=== PATIENT | female | born 1940 | race Caucasian/White ===

== ENCOUNTER 2020-10-07 07:20 | Outpatient (REF) | payer MEDICARE, BC, SELFPAY ==
[2020-10-07 11:18] LABS: MANUAL DIFF FLAG NO
[2020-10-07 11:20] LABS: Glucose Urine UA NEG (NEG); Leukocyte Esterase Urine TRACE (NEG); Nitrite Urine NEG (NEG); PH 6.5 (5.0-8.0); Urine Blood NEG (NEG); Urine Ketones NEG (NEG); Urine Protein NEG (NEG-TRACE)
[2020-10-07 11:22] LABS: Appearance Urine HAZY; Color Urine YELLOW
[2020-10-07 11:26] LABS: Basophils Absolute Auto 0.1 X10*3/uL (0.0-0.2); Basophils Percent Auto 0.6 % (0-2); Eosinophils Absolute Auto 0.2 X10*3/uL (0.0-0.4); Eosinophils Percent Auto 2.4 % (0-4); Imm Gran Abs Auto 0.04 X10*3/uL (0.00-0.03); Imm Gran Pct Auto 0.5 % (0.0-0.4); Lymphocytes Absolute Auto 1.9 X10*3/uL (1.2-4.9); Lymphocytes Percent Auto 21.7 % (20-40); Mean Corpuscular HGB Conc 34.2 g/dl (31.0-35.0); Mean Corpuscular Hemoglobin 32.7 pg (27.0-33.0); Mean Corpuscular Volume 95.7 fL (80-98); Mean Platelet Volume 10.3 fL (9.4-12.3); Monocytes Percent Auto 11.4 % (2-11); Neutrophils Absolute Auto 5.5 X10*3/uL (2.0-8.3); Neutrophils Percent Auto 63.4 % (45-73); Platelet Count 332 X10*3/uL (160-400); Red Blood Count 3.97 X10*6/uL (4.20-5.50); Red Cell Distribution Width 13.8 % (11.0-16.0); White Blood Count 8.6 X10*3/uL (4.8-10.8)
[2020-10-07 11:31] LABS: RBC Urine 0 /HPF (0); Renal Epithelial Cells Urine TRACE /LPF; Squamous Epithelial Cell Urine 1+ /LPF
[2020-10-07 12:05] LABS: Vitamin D 25-OH Total 19.5 ng/mL (>30)
[2020-10-07 12:06] LABS: Alanine Aminotransferase 28 U/L (0-31); Albumin Level 4.6 g/dL (3.5-5.0); Alkaline Phosphatase 46 U/L (39-117); Anion Gap 18 (12-20); Aspartate Amino Transferase 32 U/L (5-31); Bilirubin Total 0.7 mg/dL (0.0-1.0); Blood Urea Nitrogen 11 mg/dL (9-16); C Reactive Protein 0.18 mg/dL (< or = 0.50); Calcium 9.7 mg/dL (8.4-10.2); Carbon Dioxide 25 mmol/L (22-29); Chloride 98 mmol/L (96-108); Cholesterol 289 mg/dL; Estimated Glomerular Filt Rate > 60; Glucose Fasting 116 mg/dL (60-99); HDL Cholesterol 101 mg/dL; LDL Cholesterol Calculated 172 mg/dl; Potassium 4.3 mmol/L (3.3-5.1); Sodium 137 mmol/L (135-145); Total Protein 7.4 g/dL (6.5-8.0); Triglycerides 83 mg/dL
[2020-10-07 12:11] LABS: Erythrocyte Sedimentation Rate 7 MM/HR (0-20)
[2020-10-07 12:15] LABS: Vitamin B12 < 146 pg/mL (200-900)
[2020-10-11 15:32] LABS: Methylmalonic Acid 589 nmol/L (87-318)
[2020-10-12 12:52] LABS: Anti Nuclear Antibody Screen NEGATIVE (NEGATIVE)
== END 2020-10-07 07:21 | disposition home or self-care (01) ==
LOC: HO.HMGCLDS 07:20
PROVIDERS: PCP Internal Medicine; Visit Provider Internal Medicine
DX: Z00.01 Encounter for general adult medical examination with abnormal findings (principal); I10 Essential (primary) hypertension; E55.9 Vitamin D deficiency, unspecified; E78.00 Pure hypercholesterolemia, unspecified
CPT/HCPCS: 36415; 80053; 80061; 81001; 82306; 82607; 83921; 84443; 85025; 85652; 86038; 86039; 86140

== ENCOUNTER 2021-01-20 12:35 | Outpatient (REF) | payer MEDICARE, BC, SELFPAY ==
[2021-01-20 14:55] LABS: Vitamin B12 342 pg/mL (200-900)
== END 2021-01-20 12:36 | disposition home or self-care (01) ==
LOC: HO.HMGCLDS 12:35
PROVIDERS: PCP Internal Medicine; Visit Provider Internal Medicine
DX: Z00.00 Encounter for general adult medical examination without abnormal findings (principal); E53.8 Deficiency of other specified B group vitamins
CPT/HCPCS: 36415; 82607

== ENCOUNTER 2021-03-25 | Outpatient (REF) | payer MEDICARE, BC, SELFPAY ==
[2021-03-25 14:27] LABS: CDiff Gene PCR NEGATIVE (Negative)
[2021-03-25 14:44] LABS: Leukocytes Stool Qualitative NEGATIVE (NEGATIVE)
== END 2021-03-25 00:01 | disposition home or self-care (01) ==
LOC: HO.HMGCLNP
PROVIDERS: Visit Provider Internal Medicine
DX: R19.7 Diarrhea, unspecified (principal)
CPT/HCPCS: 87045; 87046; 87177; 87209; 87493; 89055

== ENCOUNTER 2022-03-21 07:23 | Outpatient (REF) | payer MEDICARE, BC, SELFPAY ==
[2022-03-21 11:59] LABS: Hematocrit 38.6 % (37.0-47.0); Hemoglobin 13.3 g/dl (12.0-16.0); Mean Corpuscular HGB Conc 34.5 g/dl (31.0-35.0); Mean Corpuscular Hemoglobin 32.6 pg (27.0-33.0); Mean Corpuscular Volume 94.6 fL (80.0-98.0); Mean Platelet Volume 10.3 fL (9.4-12.3); Platelet Count 331 X10*3/uL (160-400); Red Blood Count 4.08 X10*6/uL (4.20-5.50); White Blood Count 6.6 X10*3/uL (4.8-10.8)
[2022-03-21 12:22] LABS: Alanine Aminotransferase 25 U/L (0-31); Albumin Level 4.8 g/dL (3.5-5.0); Alkaline Phosphatase 45 U/L (39-117); Anion Gap 19 (12-20); Aspartate Amino Transferase 38 U/L (5-31); Bilirubin Total 0.6 mg/dL (0.0-1.0); Blood Urea Nitrogen 12 mg/dL (9-16); Carbon Dioxide 26 mmol/L (22-29); Chloride 93 mmol/L (96-108); Cholesterol 298 mg/dL; Estimated Glomerular Filt Rate > 60; Glucose Fasting 107 mg/dL (60-99); HDL Cholesterol 127 mg/dL; LDL Cholesterol Calculated 158 mg/dl; Potassium 5.2 mmol/L (3.3-5.1); Sodium 133 mmol/L (135-145); Total Protein 7.8 g/dL (6.5-8.0); Triglycerides 66 mg/dL
[2022-03-21 12:30] LABS: TSH reflex Free T4 2.38 uIU/mL (0.32-4.0)
[2022-03-21 12:41] LABS: Creatinine Urine 119.59 mg/dL; Microalbum/Creatinine Ratio Ur 37.6 ug/mg cr
[2022-03-21 14:49] LABS: Vitamin B12 227 pg/mL (200-900)
== END 2022-03-21 07:24 | disposition home or self-care (01) ==
LOC: HO.HMGCLDS 07:23
PROVIDERS: PCP Internal Medicine; Visit Provider Internal Medicine
DX: Z00.00 Encounter for general adult medical examination without abnormal findings (principal); R53.83 Other fatigue; I10 Essential (primary) hypertension
CPT/HCPCS: 36415; 80053; 80061; 82043; 82607; 84443; 85027

== ENCOUNTER 2022-10-16 08:46 | Outpatient (REF) | payer MEDICARE, BC, SELFPAY ==
--- NOTE | ~2022-10-16 | US_ITS ---
EXAMINATION: US ABDOMEN COMPLETE CLINICAL INFORMATION: Elevated LFTs, nausea. COMPARISON: None available. TECHNIQUE: Real-time imaging of the abdominal viscera. FINDINGS: PANCREAS: Normal. ABDOMINAL AORTA: Atherosclerotic changes are present aorta but there is no aneurysm. INFERIOR VENA CAVA: Visualized portions are normal. LIVER: The liver is normal in size. The liver contour is normal. Liver echogenicity is borderline increased suggesting hepatic steatosis. No focal hepatic lesion. There is no intrahepatic biliary duct dilatation seen. GALLBLADDER: The gallbladder is not visualized although the patient states that there has been no cholecystectomy. COMMON BILE DUCT: Normal in caliber measuring 0.6 cm in diameter. RIGHT KIDNEY: There is some punctate foci in the renal sinus which may be vascular interfaces. No hydronephrosis. No convincing renal calculi or focal parenchymal lesions. The kidney measures 9.8 cm in maximum dimension. LEFT KIDNEY: There is some punctate foci in the renal sinus which may be vascular interfaces. No hydronephrosis. No renal calculi or focal parenchymal lesions. The kidney measures 9.6 cm in maximum dimension. SPLEEN: The spleen is small measuring 6.3 cm in maximum dimension. FREE FLUID: None. US/US abdomen complete IMPRESSION: Borderline increased echogenicity of the liver suggesting hepatic steatosis.
== END 2022-10-16 08:47 | disposition home or self-care (01) ==
LOC: HO.US 08:46
PROVIDERS: PCP Family Medicine; Visit Provider Internal Medicine
DX: R74.8 Abnormal levels of other serum enzymes (principal); R11.0 Nausea
CPT/HCPCS: 76700

== ENCOUNTER 2023-02-26 15:20 | Inpatient (IN) | payer MEDICARE, BC, SELFPAY ==
--- NOTE | ~2023-02-26 | XR_ITS ---
EXAMINATION: XR CHEST CLINICAL INFORMATION: Concern for aspiration. COMPARISON: Previous of the same day. TECHNIQUE: Frontal view of the chest was obtained. FINDINGS: The patient is rotated and the lung volumes are low. The cardiomediastinal silhouette is within normal limits. There are faint lung base opacities more prominent on the left. The upper lung jimenes are clear. There is blunting of the costophrenic angles. The bony structures are osteopenic. The soft tissues are unremarkable. XR/XR chest 1V IMPRESSION: Rotation and low lung volumes limits evaluation. Faint lower lung field opacities possibly atelectasis or infiltrates. Aspiration is considered. Small bilateral pleural effusions.
--- NOTE | ~2023-02-26 | CT_ITS ---
EXAMINATION: CT HEAD WITHOUT CONTRAST CLINICAL INFORMATION: Confusion COMPARISON: None TECHNIQUE: Contiguous axial imaging was performed from the skull base to vertex without intravenous administration of contrast. This CT examination was performed using dose optimization techniques as appropriate, variously including the following: *Automated exposure control *Adjustment of mA and/or kV according to patient size (this includes techniques or standardized protocols for targeted exams where dose is matched to indication/reason for exam; i.e. extremities or head) *Use of iterative reconstruction technique DLP: 654 mGy-cm FINDINGS: There is no evidence of acute intracranial hemorrhage or territorial infarction. Chronic white matter small vessel ischemic changes. Cerebral atrophy with commensurate ventricular changes. No abnormal mass effect or midline shift is seen. [place] to white matter differentiation is well preserved. No extra-axial fluid collections are identified. The ventricles are normal in size. There is no abnormal attenuation within the brain parenchyma. The osseous structures and soft tissues are normal. The mastoid air cells and visualized portions of the paranasal sinuses are well aerated. CT/CT head/brain wo IV con IMPRESSION: 1. No acute intracranial pathology. 2. Chronic white matter small vessel ischemic changes.
--- NOTE | ~2023-02-26 | XR_ITS ---
EXAMINATION: XR CHEST CLINICAL INFORMATION: Shortness of breath COMPARISON: Chest 02/28/2023 TECHNIQUE: AP upright portable view of the chest was obtained. 9:58 AM FINDINGS: Heart size is upper limits of normal. Interval decrease in right pleural effusion. No evidence of a left pleural effusion. Slight streaky opacity at lung bases is consistent with atelectasis and/or pneumonia. No CHF. XR/XR chest 1V IMPRESSION: 1. Interval decrease in right pleural effusion. No left pleural effusion. 2. Bibasilar atelectasis and/or pneumonia.
--- NOTE | ~2023-02-26 | XR_ITS ---
EXAMINATION: XR CHEST CLINICAL INFORMATION: Shortness of breath COMPARISON: None available. TECHNIQUE: Frontal view of the chest was obtained. FINDINGS: Heart size upper limits normal. Probable tiny bilateral pleural effusions. There is no evidence of CHF. No infiltrates or lung masses are seen. XR/XR chest 1V IMPRESSION: Probable tiny bilateral pleural effusions.
[2023-02-26 15:36] VITALS: BP 143/104; PULSE 120; RESP 16; TEMP 36.6; O2SAT 96; BMI 25.7
--- NOTE | 2023-02-26 15:37 | ED.GENADULT ---
HPI - General Adult General Chief complaint: Nausea/Vomiting/Diarrhea Stated complaint: abnormal labs Time Seen by Provider: 02/26/23 19:30 Source: patient Mode of arrival: ambulatory Limitations: no limitations History of Present Illness HPI narrative: 83-year-old female history of high blood pressure brought to the ED by her daughter and for abnormal lab results. Patient was informed by primary care provider blood test that was done by her renal doctor showed hyponatremia and recommend patient to follow up with the ED. patient's sodium was 125. Patient admits for the past couple weeks she has been tired/lethargic and has had a decrease in appettite. Patient denies any weight loss, fever, chills, abdominal pain, headache, dizziness, slurred speech, facial droop, seizures, or paralysis of extremities. Related Data Home Medications Medication Instructions Recorded Confirmed esomeprazole magnesium 20 mg 20 mg PO DAILY 02/26/23 02/26/23 tablet,delayed release metoprolol succinate 100 mg 100 mg PO DAILY 02/26/23 02/26/23 tablet,extended release 24 hr metoprolol succinate 25 mg 25 mg PO DAILY 02/26/23 02/26/23 tablet,extended release 24 hr ondansetron HCl 4 mg tablet 4 mg PO Q8H PRN Nausea 02/26/23 02/26/23 timolol maleate 0.5 % eye drops 1 drp ophthalmic (eye) QAM 02/26/23 02/26/23 Allergies Allergy/AdvReac Type Severity Reaction Status Date / Time acetaminophen [Percocet] Allergy Unknown Verified 08/13/18 00:00 oxycodone [Percocet] Allergy Unknown Verified 08/13/18 00:00 Review of Systems Review of Systems: Abnormal lab results. Lethargy Yes all other systems are reviewed and are negative [facility] Past Medical History Medical History Osteoarthritis Gastroesophageal reflux disease Essential hypertension Social History Social History Alcohol intake: current Alcohol intake frequency: 0-2 drinks per day Alcohol type: wine Patient Tobacco Use Status: Never used Tobacco Smoked in Last 30 Days: No Use of substances other than those prescribed or required for medical reasons: No Advance Directives: No Advance Directives Information Provided: No Nutrition Risks: No Nutritional Risk service: No Physical Exam ED Vital Signs: Vital Signs - 24 hr 02/26/23 15:36 Temperature 98 F Pulse Rate 120 H Respiratory Rate 16 Blood Pressure 143/104 H Pulse Oximetry 96 Oxygen Delivery Method Room Air BMI result Body Mass Index 25.7 Const General: cooperative, healthy appearing, comfortable, no acute distress, well developed, alert and awake Orientation/consciousness: oriented to person, oriented to place, oriented to time and patient oriented x3 HENCO Head: Yes normal to inspection, Yes No palpable skull fracture present, Yes normocephalic and Yes atraumatic Eyes General: appearance normal, both eyes and all related structures Neck Neck: Yes normal visual inspection, Yes full ROM, Yes no lymphadenopathy, Yes no meningeal signs, Yes trachea midline, Yes supple, No anterior neck swelling and No tender Chest Chest palpation & inspection: normal inspection of the chest and normal palpation of entire chest wall Resp Effort & Inspection: normal respiratory effort and able to speak in complete sentences Auscultation: clear to auscultation bilaterally Cardio Jugular venous distension: no JVD Heart sounds: S1 normal heart sound present and S2 normal heart sound present GI Inspection: Yes normal to inspection and No abdominal wall ecchymosis Palpation (GI): Soft to palpation, not firm, nontender, no guarding and not rigid General: No CVA tenderness and Yes no CVA tenderness Back/Spine/Pelvis Back: no CVA tenderness, No CVA tenderness and No back tenderness Skin General skin exam: no rashes or lesions noted, elasticity normal and turgor normal Neuro Other: Negative for any facial droop, paralysis of extremities, slurred speech, loss of vision, of paralysis of extremities. Negative pronator drift. [id number] and rapid hand movement intact. Patient alert oriented x3 General: oriented to person, oriented to place, oriented to time, patient oriented x3, gait normal, tone normal, moves all extremities, Normal light touch and pain sensation, no meningeal signs, no focal motor deficits, CN's II-XI intact bilaterally and normal sensation to monofilament Extrem General: Yes normal to inspection and Yes full ROM Psych Appearance: grossly normal, well kempt and not disheveled Course Course Course Narrative: RME- 83-year-old female presents for evaluation off ?abnormal labs. ? She had labs done 2 weeks ago at a [facility] facility which showed a sodium of 125. Per the patient's daughter she has had intermittent confusion and lethargy as well as chronic nausea. Patient appears to be in AFib with RVR, heart rate as high as 130 in triage. Plan for labs, EKG. Reevaluation(s) Reevaluation #1: [facility] renal panel Results. Medications Administered Generic Name Dose Route Start Last Admin Trade Name Freq PRN Reason Stop Dose Admin Enoxaparin Sodium 40 mg 02/26/23 21:00 02/26/23 20:58 Enoxaparin Sodium 40 Mg/0.4 Ml Syringe SUBCUT 40 mg Q24H SOHAIL Administration Melatonin 6 mg 02/26/23 20:31 02/26/23 21:08 Melatonin 3 Mg Tablet PO 6 mg BEDTIME PRN Administration Insomnia Ondansetron HCl 4 mg 02/26/23 20:31 02/27/23 06:44 Ondansetron Hcl 4 Mg/2 Ml Vial IVPUSH 4 mg Q8H PRN Administration Nausea and Vomiting Sodium Chloride 3 ml 02/27/23 00:00 02/27/23 07:05 0.9 % Sodium Chloride Flush 3 Ml Syringe IVFLUSH Not Given QSHIFT SOHAIL Discontinued Medications Generic Name Dose Route Start Last Admin Trade Name Freq PRN Reason Stop Dose Admin Diltiazem HCl 15 mg 02/26/23 20:26 02/26/23 20:58 Diltiazem Hcl 50 Mg/10 Ml Vial IVPUSH 02/26/23 20:27 15 mg STAT STA Administration Diltiazem HCl 15 mg 02/27/23 06:21 02/27/23 06:36 Diltiazem Hcl 50 Mg/10 Ml Vial IVPUSH 02/27/23 06:22 15 mg STAT STA Administration Zolpidem Tartrate 5 mg 02/26/23 23:43 02/26/23 23:56 Zolpidem Tartrate 5 Mg Tablet PO 02/26/23 23:44 5 mg ONCE ONE Administration Medical Decision Making Medical Decision Making [facility] Narrative: 83-year-old female history of high blood pressure brought to ED for hyponatremia found by lab work done on February 16 by Renal doctor which showed sodium of 125. Patient admits to being a start drinking decreased appetite and not eating much. Patient denies any abdominal pain, nausea, vomiting, fever, chills, chest pain, shortness of breath, slurred speech, facial droop, or paralysis of extremities. Patient denies any loss of vision. Patient also new onset AFib in the ER. Patient and family denies any history of atrial fibrillation. Patient denies any chest pain or shortness of breath. Patient is alert oriented x3. Patient follows commands. Patient knows her name address and place. Patient can identify and and Dominic the names. Patient presently is not altered. Negative for tremors. 11:00pm : Patient admitted for hyponatremia and Afib RVR. Case discussed with Dr. Tolbert [facility]. FLuids ordered and Patient given DIltizeim IV. Patient not in any distress. Differential Diagnosis Differential Diagnoses: The differential diagnosis associated with the presentation includes (Hyponatremia, Afib, UTI, Covid) Admission/Observation Consideration of admission/observation: Escalation of care including admission/observation considered Consult Healthcare Provider Management of the patient was discussed with: Hospitalist (Dr. Tolbert) Lab Data MDM Lab Attestation statement: I reviewed the patient's lab results. 02/27/23 05:22 02/27/23 05:22 Labs: Lab Results 02/26/23 02/26/23 Range/Units 15:56 19:57 WBC 7.5 (4.8-10.8) X10*3/uL RBC 3.71 L (4.20-5.50) X10*6/uL Hgb 12.1 (12.0-16.0) g/dl Hct 34.6 L (37.0-47.0) % MCV 93.3 (80.0-98.0) fL MCH 32.6 (27.0-33.0) pg MCHC 35.0 (31.0-35.0) g/dl RDW 12.6 (11.0-16.0) % Plt Count 340 (160-400) X10*3/uL MPV 9.2 L (9.4-12.3) fL Immature Gran % (Auto) 0.5 H (0.0-0.4) % Neut % (Auto) 72.1 (45-73) % Lymph % (Auto) 17.6 L (20-40) % [place] % (Auto) 8.5 (2-11) % Eos % (Auto) 0.9 (0-4) % Baso % (Auto) 0.4 (0-2) % Lymph # (Auto) 1.3 (1.2-4.9) X10*3/uL [place] # (Auto) 0.6 (0.1-1.2) X10*3/uL Eos # (Auto) 0.1 (0.0-0.4) X10*3/uL Baso # (Auto) 0.0 (0.0-0.2) X10*3/uL Abs Immat Gran (auto) 0.04 H (0.00-0.03) X10*3/uL Absolute Neuts (auto) 5.4 (2.0-8.3) x10*3/uL Absolute Nucleated RBC 0.000 (0.0-0.012) X10*3/uL Nucleated RBC % (auto) 0.0 (0.0-0.2) /100WBC PT 14.4 H (11.1-13.3) SEC INR 1.2 H (0.9-1.1) APTT 29.5 (26.0-36.4) SEC Sodium 124 L (135-145) mmol/L Potassium 5.1 (3.3-5.1) mmol/L Chloride 89 L (96-108) mmol/L Carbon Dioxide 24 (22-29) mmol/L Anion Gap 16 (12-20) BUN 13 (9-16) mg/dL Creatinine 1.03 (0.5-1.4) mg/dL Estim Creat Clear Calc 37.1 Estimated GFR 51 Random Glucose 124 H (60-115) mg/dL Osmolality 261 L (281-305) mosm/kg Calcium 9.3 D (8.4-10.2) mg/dL Phosphorus 4.1 (2.7-4.5) mg/dL Magnesium 1.6 (1.6-2.6) mg/dL Total Bilirubin 0.3 (0.0-1.0) mg/dL AST 42 H (5-31) U/L ALT 29 (0-31) U/L Alkaline Phosphatase 63 (39-117) U/L Troponin I High Sens 14.4 (<3.5-17.0) ng/L Total Protein 7.1 (6.5-8.0) g/dL Albumin 4.0 (3.5-5.0) g/dL Lipase 20 (8-78) U/L TSH 3.25 (0.32-4.0) uIU/mL Independent Interpretation I performed an independent interpretation of an: EKG (Afib with RVR Claude 104, QRS 78, QTC 402. Negative STEMi) Independent Historian Clinical information obtained from an independent historian. History obtained from or confirmed by: Spouse and Other (Daughter) External Record Review External record reviewed: Other ([facility]) Discharge Plan Discharge Clinical Impression: Atrial fibrillation with RVR, Hyponatremia Patient Disposition: Admitted As Inpatient
--- NOTE | 2023-02-26 15:44 | ECG_ITS ---
Test Reason : ams Blood Pressure : / mmHG Vent. Rate : 104 BPM Atrial Rate : 000 BPM P-R Int : 000 ms QRS Dur : 078 ms QT Int : 306 ms P-R-T Axes : 000 046 183 degrees QTc Int : 402 ms Atrial fibrillation with rapid ventricular response ST & T wave abnormality, consider inferolateral ischemia Abnormal ECG No previous ECGs available Referred By: Leighton Landis Electronically Signed By:JOSE G PERSAUD MD
[2023-02-26 16:07] LABS: MANUAL DIFF FLAG NO
[2023-02-26 16:10] LABS: Basophils Percent Auto 0.4 % (0-2); Eosinophils Absolute Auto 0.1 X10*3/uL (0.0-0.4); Eosinophils Percent Auto 0.9 % (0-4); Hematocrit 34.6 % (37.0-47.0); Hemoglobin 12.1 g/dl (12.0-16.0); Imm Gran Abs Auto 0.04 X10*3/uL (0.00-0.03); Imm Gran Pct Auto 0.5 % (0.0-0.4); Lymphocytes Absolute Auto 1.3 X10*3/uL (1.2-4.9); Lymphocytes Percent Auto 17.6 % (20-40); Mean Corpuscular Hemoglobin 32.6 pg (27.0-33.0); Mean Corpuscular Volume 93.3 fL (80.0-98.0); Mean Platelet Volume 9.2 fL (9.4-12.3); Monocytes Absolute Auto 0.6 X10*3/uL (0.1-1.2); Monocytes Percent Auto 8.5 % (2-11); Neutrophils Absolute Auto 5.4 x10*3/uL (2.0-8.3); Neutrophils Percent Auto 72.1 % (45-73); Platelet Count 340 X10*3/uL (160-400); Red Blood Count 3.71 X10*6/uL (4.20-5.50); Red Cell Distribution Width 12.6 % (11.0-16.0); White Blood Count 7.5 X10*3/uL (4.8-10.8)
[2023-02-26 16:21] LABS: INTERNATIONAL NORM RATIO 1.2 (0.9-1.1); Prothrombin Time 14.4 SEC (11.1-13.3)
[2023-02-26 16:24] LABS: Partial Thromboplastin Time 29.5 SEC (26.0-36.4)
[2023-02-26 16:32] LABS: Alanine Aminotransferase 29 U/L (0-31); Alkaline Phosphatase 63 U/L (39-117); Anion Gap 16 (12-20); Aspartate Amino Transferase 42 U/L (5-31); Bilirubin Total 0.3 mg/dL (0.0-1.0); Blood Urea Nitrogen 13 mg/dL (9-16); Calcium 9.3 mg/dL (8.4-10.2); Carbon Dioxide 24 mmol/L (22-29); Chloride 89 mmol/L (96-108); Creatinine Clr Calc Pharmacy 37.1; Estimated Glomerular Filt Rate 51; Glucose Random 124 mg/dL (60-115); Lipase 20 U/L (8-78); Magnesium 1.6 mg/dL (1.6-2.6); Phosphorus 4.1 mg/dL (2.7-4.5); Potassium 5.1 mmol/L (3.3-5.1); Sodium 124 mmol/L (135-145); Total Protein 7.1 g/dL (6.5-8.0)
[2023-02-26 16:41] LABS: Troponin-I High Sensitivity 14.4 ng/L (<3.5-17.0)
[2023-02-26 20:44] LABS: TSH reflex Free T4 3.25 uIU/mL (0.32-4.0)
--- NOTE | 2023-02-26 20:48 | PM.IMHP ---
History of Present Illness Date of Service: 02/26/23 Chief Complaint: Abnormal labs This is a 83-year-old female with pertinent history of essential hypertension, gastroesophageal reflux disease who was brought to the emergency department for evaluation of abnormal labs. Patient got blood work at her PCPs office. Sodium was found to be low and she was sent to the ER. Patient states she got blood work about a week ago at her chicken cleaner's office where sodium was low and hence they repeated blood work at PCPs office. No history of hyponatremia in the past. Does complain of nausea, fatigability over the last 7-10 days. No vomiting or diarrhea. No fever, chills, chest discomfort, palpitations, shortness of breath, abdominal pain, changes in urinary or bowel habits. In the emergency department, sodium was found to be 125 and patient was found to be in AFib with RVR Review of Systems Constitutional: Constitutional: Reports fatigue, Reports lethargy and Reports weakness Cardiovascular: Cardiovascular: Reports no additional cardiovascular complaints Respiratory: Respiratory: Reports no additional respiratory complaints Gastrointestinal: Gastrointestinal: Reports nausea Genitourinary: Genitourinary: Reports no additional female genitourinary complaints Neurologic: Reports weakness Endocrine: Endocrine: Reports fatigue [facility] Medical History Osteoarthritis Gastroesophageal reflux disease Essential hypertension Pertinent family history: No family history of early CAD Social History Advance Directives: No Advance Directives Information Provided: No Meds Allergies Allergy/AdvReac Type Severity Reaction Status Date / Time acetaminophen [Percocet] Allergy Unknown Verified 08/13/18 00:00 oxycodone [Percocet] Allergy Unknown Verified 08/13/18 00:00 Active Medications: Current Medications Acetaminophen (Acetaminophen 325 Mg Tablet) 650 mg PO Q6H PRN PRN Reason: Pain, Mild (Pain Scale 1-3) Enoxaparin Sodium (Enoxaparin Sodium 40 Mg/0.4 Ml Syringe) 40 mg SUBCUT Q24H SOHAIL Melatonin (Melatonin 3 Mg Tablet) 6 mg PO BEDTIME PRN PRN Reason: Insomnia Ondansetron HCl (Ondansetron Hcl 4 Mg/2 Ml Vial) 4 mg IVPUSH Q8H PRN PRN Reason: Nausea and Vomiting Sodium Chloride (0.9 % Sodium Chloride Flush 3 Ml Syringe) 3 ml IVFLUSH QSHIFT [facility] Home Medications Medication Instructions Recorded Confirmed Last Taken Type esomeprazole magnesium 20 mg 20 mg PO DAILY 02/26/23 02/26/23 02/26/23 History tablet,delayed release metoprolol succinate 100 mg 100 mg PO DAILY 02/26/23 02/26/23 02/26/23 History tablet,extended release 24 hr metoprolol succinate 25 mg 25 mg PO DAILY 02/26/23 02/26/23 02/26/23 History tablet,extended release 24 hr ondansetron HCl 4 mg tablet 4 mg PO Q8H PRN Nausea 02/26/23 02/26/23 Unknown History timolol maleate 0.5 % eye drops 1 drp ophthalmic (eye) QAM 02/26/23 02/26/23 02/26/23 History Physical Exam Vital Signs and Narrative: Vital Signs: Last Vital Signs Temp 98 F 02/26/23 15:36 Pulse 120 H 02/26/23 15:36 Resp 16 02/26/23 15:36 BP 143/104 H 02/26/23 15:36 Pulse Ox 96 02/26/23 15:36 O2 Del Method Room Air 02/26/23 15:36 BMI result Body Mass Index 25.7 Elderly female lying in bed in no distress Neck supple, no JVD Irregularly irregular, S1-S2 heard Regular breath sounds bilaterally, no wheezing or crackles appreciated Abdomen soft nontender, no guarding, no rigidity Patient is awake, alert and oriented to self, place, time and person ; no focal motor deficit Psych: Normal mood No pedal edema Results Labs 02/26/23 15:56 02/26/23 15:56 Labs: Laboratory Results - last 24 hr 02/26/23 02/26/23 15:56 19:57 MCV 93.3 MCH 32.6 MCHC 35.0 RDW 12.6 Plt Count 340 MPV 9.2 L Immature Gran % (Auto) 0.5 H Neut % (Auto) 72.1 Lymph % (Auto) 17.6 L [place] % (Auto) 8.5 Eos % (Auto) 0.9 Baso % (Auto) 0.4 Lymph # (Auto) 1.3 [place] # (Auto) 0.6 Eos # (Auto) 0.1 Baso # (Auto) 0.0 Abs Immat Gran (auto) 0.04 H Absolute Neuts (auto) 5.4 Absolute Nucleated RBC 0.000 Nucleated RBC % (auto) 0.0 PT 14.4 H INR 1.2 H APTT 29.5 Anion Gap 16 Estim Creat Clear Calc 37.1 Estimated GFR 51 Random Glucose 124 H Calcium 9.3 D Phosphorus 4.1 Magnesium 1.6 Total Bilirubin 0.3 AST 42 H ALT 29 Alkaline Phosphatase 63 Total Protein 7.1 Albumin 4.0 Lipase 20 TSH 3.25 Assessment and Plan (1) Hyponatremia: Status: Acute (2) Atrial fibrillation with RVR: Status: Acute Plan This is a 83-year-old female with pertinent history of essential hypertension, gastroesophageal reflux disease who was brought to the emergency department for evaluation of abnormal labs. #. Moderate hypotonic hyponatremia, chronic: Urine studies pending. Consulted Nephrology, appreciate assistance. Closely monitor serum sodium #. AFib with RVR, new onset: Chads Vasc score 5. Will admit with cardiac monitoring. Received IV diltiazem in the ER. Obtaining echocardiogram and consulting cardiology. TSH pending #. Essential hypertension: On beta-grant #. Gastroesophageal reflux disease: On PPI Med rec pending DVT prophylaxis: Lovenox Admit as inpatient and will require two night minimum hospital stay for treatment of new onset AFib with RVR and hyponatremia. Specialist consults pending Quality Stroke Does the patient have a stroke diagnosis?: No VTE Prior VTE?: No VTE Risk Level:: Medical - moderate - high VTE Device Contraindication: Treatment Not Indicated VTE Drug Contraindication: N/A - Med Ordered
[2023-02-26 20:50] LABS: Osmolality, Serum 261 mosm/kg (281-305)
--- NOTE | 2023-02-26 20:50 | PHA.MEDREC ---
Pharmacy Consult ? Medication Reconciliation Pharmacy has completed the medication reconciliation. list from [facility], [facility] confirmed list. Mary Carrion, CarsonD
[2023-02-26] MEDS: dilTIAZem HCL 50 MG/10 ML VIAL 15 MG IVPUSH (20:58)
[2023-02-26] MEDS: Enoxaparin Sodium 40 MG/0.4 ML SYRINGE SUBCUT (20:58)
[2023-02-26] MEDS: Melatonin 3 MG TABLET 6 MG PO (21:08)
[2023-02-26] MEDS: ondansetron HCL 4 MG/2 ML VIAL IVPUSH (21:13)
[2023-02-26 22:59] VITALS: BP 145/98; PULSE 77; RESP 18; TEMP 36.6; O2SAT 95
--- NOTE | 2023-02-26 23:45 | PC.NURSE ---
[place] text sent to Dr Tolbert regarding pts inability to sleep. New orders placed in JUN. Pt aware of plan of care.
[2023-02-26] MEDS: Zolpidem Tartrate 5 MG TABLET PO (23:56)
[2023-02-26] MEDS: 0.9 % Sodium Chloride Flush 3 ML SYRINGE IVFLUSH (23:56)
[2023-02-27] VITALS (9 sets, daily range): BP systolic 139–171; BP diastolic 99–123; PULSE 89–122; RESP 16–23; TEMP 36.1–37; O2SAT 92–97
[2023-02-27 03:37] LABS: Appearance Urine Cloudy; Color Urine Dark Yellow; Glucose Urine UA Negative (Negative); Leukocyte Esterase Urine Negative (Negative); Nitrite Urine Negative (Negative); PH 5.5 (5.0-9.0); Specific Gravity - Urine 1.025 (1.005-1.025); UMIC TRIGGER UACC YES; Urine Blood Negative (Negative); Urine Ketones 15 mg/dL (Negative); Urine Protein 100 (2+) mg/dL (Neg-Trace)
[2023-02-27 03:45] LABS: Bacteria Urine Trace (None Seen); Squamous Epithelial Cell Urine >20 /HPF (0-2); WBC Urine 0-5 /HPF (0-5)
[2023-02-27 03:50] LABS: Osmolality Urine 565 mosm/kg (373-1093)
[2023-02-27 03:54] LABS: Sodium Urine Random < 20.0 mmol/L
[2023-02-27 05:33] LABS: MANUAL DIFF FLAG NO
[2023-02-27 05:45] LABS: Basophils Percent Auto 0.6 % (0-2); Eosinophils Absolute Auto 0.1 X10*3/uL (0.0-0.4); Eosinophils Percent Auto 1.1 % (0-4); Hematocrit 32.7 % (37.0-47.0); Hemoglobin 11.5 g/dl (12.0-16.0); Imm Gran Abs Auto 0.02 X10*3/uL (0.00-0.03); Imm Gran Pct Auto 0.3 % (0.0-0.4); Lymphocytes Absolute Auto 1.5 X10*3/uL (1.2-4.9); Lymphocytes Percent Auto 21.1 % (20-40); Mean Corpuscular HGB Conc 35.2 g/dl (31.0-35.0); Mean Corpuscular Volume 91.1 fL (80.0-98.0); Mean Platelet Volume 9.3 fL (9.4-12.3); Monocytes Absolute Auto 0.9 X10*3/uL (0.1-1.2); Monocytes Percent Auto 12.5 % (2-11); Neutrophils Absolute Auto 4.5 x10*3/uL (2.0-8.3); Neutrophils Percent Auto 64.4 % (45-73); Platelet Count 324 X10*3/uL (160-400); Red Blood Count 3.59 X10*6/uL (4.20-5.50); Red Cell Distribution Width 12.3 % (11.0-16.0)
[2023-02-27 05:57] LABS: Anion Gap 18 (12-20); Blood Urea Nitrogen 14 mg/dL (9-16); Calcium 9.3 mg/dL (8.4-10.2); Carbon Dioxide 23 mmol/L (22-29); Chloride 90 mmol/L (96-108); Creatinine Clr Calc Pharmacy 41.5; Estimated Glomerular Filt Rate 58; Glucose Random 101 mg/dL (60-115); Potassium 4.7 mmol/L (3.3-5.1); Sodium 126 mmol/L (135-145)
--- NOTE | 2023-02-27 06:22 | PC.NURSE ---
[place] text sent to Dr. Tolbert regarding pts gradual heart rate increase. Pt continues to be in A-fib with heart between 110-130. New orders to repeat dilt per Dr. Tolbert.
[2023-02-27] MEDS: dilTIAZem HCL 50 MG/10 ML VIAL 15 MG IVPUSH (06:36)
[2023-02-27] MEDS: ondansetron HCL 4 MG/2 ML VIAL IVPUSH (06:44)
--- NOTE | 2023-02-27 07:00 | CA_ITS ---
Transthoracic Echocardiogram Patient (Last, First, Middle): Jamila Walker K Gender: Female Date of : 1940 Age: 83 Procedure Date: 02/27/2023 Procedure Type: Transthoracic Echocardiogram Location: ER Height: 160.02 cm Weight: 65.77 kg BSA: 1.69 m2 Heart Rate: bpm BP: 168 / 103 mmHg Surveyor Rod Helper: SB Referring MD: Maritza Tolbert MD Zipper Measurer: Da Ann MD Symptoms: AFib with RVR Study Quality: Adequate ECG Rhythm: Atrial Fibrillation Conclusions: - 1. Low normal LV ejection fraction 50-55% 2. Mild mitral regurgitation 3. Upper limits of normal RV systolic pressure 4. No gross pericardial effusion Findings Left Ventricle Normal left ventricular cavity size. There is normal left ventricular wall thickness. The left ventricular systolic function is low normal. The visually estimated ejection fraction is between 50-55%. Diastolic function is indeterminate on the basis of available data. Right Ventricle Normal right ventricular cavity size. Atria The left atrium is likely dilated. There is lipomatous hypertrophy of the interatrial septum. There is no evidence of interatrial shunt. The right atrium is normal in size. Aortic Valve Normal aortic valve structure and function. There is no aortic valve stenosis. There is no aortic valve regurgitation. Mitral Valve Normal mitral valve structure and function. There is mild mitral valve regurgitation. There is no mitral valve stenosis. Pulmonic Valve The pulmonic valve is likely normal. Tricuspid Valve Normal tricuspid valve structure. There is mild tricuspid valve regurgitation. The right ventricular systolic pressure is 38 mmHg. Normal right atrial pressure. There is no evidence of pulmonary hypertension. Great Vessels All visible segments of the aorta are normal in size. The pulmonary artery was not well visualized. Venous The inferior vena cava is normal in size and collapses greater than 50% with inspiration. Pericardium/Pleural There is no evidence of pericardial effusion. Prior Study Comparison No prior study available for comparison. Measurements 2D Linear Measurements IVSd: 1.05 0.6-0.9/0.6-1.0 cm LVIDd: 4.27 3.9-5.3/4.2-5.9 cm LVIDd Index: 2.53 2.4-3.2/2.2-3.1 cm/m2 LVIDs: 2.89 2.0-3.6 cm LVPWd: 0.90 0.7-1.1 cm LA Diam: 3.40 2.7-3.8/3.0-4.0 cm LAIDs Index: 2.01 1.5-2.3 cm/m2 LV Mass: 169.78 67-162/88-224 g LV Mass Index: 100.46 43-95/49-115 g/m2 LVOT Diam: 1.90 3.0+(-)1.3 cm 2D Systolic Function EF 4C: 52.70 >55% EF 2C: 52.40 >55% EF BiP: 52.70 >55% Mitral Valve MV Pk E: 0.92 Aortic Valve AoV Pk Chris: 0.88 AoV Pk Grad: 3.00 ELAYNE: 2.00 LVOT LVOT Pk Chris: 0.52 LVOT Mn Chris: 0.41 LVOT VTI: 0.10 LVOT Pk Grad: 1.00 LVOT Mn Grad: 1.00 LVOT Diam: 1.90 LVOT Area: 2.84 Diastolic Function MV Pk E: 0.92 Tricuspid Valve TR Pk Chris: 2.95 TR Pk Grad: 35.00 RA Press: 3.00 RVSP: 38.00 Great Vessels Aorta Sinus of Valsalva: 3.20 2.0-3.5 cm Ao Asc: 3.40 2.1-3.4 cm Pulmonary Valve PV Pk Chris: 0.54 Peak PV Grad: 1.00 Updated in Other Vendor System with Status of Final Da Ann MD electronically signed on 02/27/2023 11:39:56 AM with status of Final
--- NOTE | 2023-02-27 07:44 | PC.NURSE ---
assumed care of pt at 0700. pt a&o x4. pt daughter at bedside. pt boosted/repositioned in bed. provided with breakfast. pt sts she is going to attempt to eat since already medicated per mar for nausea. call martin within pt reach. rr even/unlabored. pt on bedside monitor. all pt needs met luh. plan of care ongoing. awaiting bed assignment.
--- NOTE | 2023-02-27 08:06 | PC.NURSE ---
pt able to tolerate breakfast, sts nausea has subsided. pt offers no complaints luh. call martin within pt reach. family at bedside.
--- NOTE | 2023-02-27 08:35 | PM.EVENT ---
Event Note Date of Service: 02/27/23 Event Note: Nephrology consulted for hyponatremia. Detailed consult note to follow. Chilango Manzanares
--- NOTE | 2023-02-27 08:55 | PC.NURSE ---
echo at bedside.
--- NOTE | 2023-02-27 10:14 | PC.NURSE ---
pt's daughter is going home briefly to sleep. she is requesting to be updated by the senior warehouse clerk via phone call if she is not here for rounds. Maggi (daughter): [phone]
--- NOTE | 2023-02-27 11:06 | PM.CNCAR ---
History of Present Illness History of Present Illness Date of Service: 02/27/23 Requesting physician: Otf Agrawal Consult reason: atrial fibrillation Chief complaint: Abnormal lab Narrative: I was consulted to see Jamila in cardiology consultation today for new onset atrial fibrillation. Patient is not a good historian and history was obtained from the chart and patient's daughter at bedside. Patient with prior history of hypertension, generally independent at home and lives with her . 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 She was brought to the hospital because of progressive weakness and lethargy and confusion. Patient denies any clear complains of palpitation rapid heart rate. This was not noticed a primary care physician's office visit 2 weeks ago as per the . Patient was noted to have gradually declining sodium levels and was advised to come to the emergency room given her neurologic symptoms and low sodium level. She has not had any seizure-like activity. Denies any worsening shortness of breath, orthopnea, PND. No lightheadedness, syncope. Unclear as to the onset of atrial fibrillation. However overnight has received rate control with adequate control of her heart rate. Also continues to have elevated blood pressure. No prior history of atrial fibrillation. Review of Systems Review of Systems: Yes Unobtainable due to mental status Neurologic: Reports confusion Psychiatric: Psychiatric: Reports confusion [facility] Past Medical History Medical History Osteoarthritis Gastroesophageal reflux disease Essential hypertension Social History Social History Alcohol intake: current Alcohol intake frequency: 0-2 drinks per day Alcohol type: wine Patient Tobacco Use Status: Never used Tobacco Smoked in Last 30 Days: No Use of substances other than those prescribed or required for medical reasons: No Advance Directives: No Advance Directives Information Provided: No Nutrition Risks: No Nutritional Risk Meds Allergies Allergy/AdvReac Type Severity Reaction Status Date / Time acetaminophen [Percocet] Allergy Unknown Verified 08/13/18 00:00 oxycodone [Percocet] Allergy Unknown Verified 08/13/18 00:00 Active Medications: Current Medications Acetaminophen (Acetaminophen 325 Mg Tablet) 650 mg PO Q6H PRN PRN Reason: Pain, Mild (Pain Scale 1-3) Enoxaparin Sodium (Enoxaparin Sodium 40 Mg/0.4 Ml Syringe) 40 mg SUBCUT Q24H [facility] Last Admin: 02/26/23 20:58 Dose: 40 mg Melatonin (Melatonin 3 Mg Tablet) 6 mg PO BEDTIME PRN PRN Reason: Insomnia Last Admin: 02/26/23 21:08 Dose: 6 mg Ondansetron HCl (Ondansetron Hcl 4 Mg/2 Ml Vial) 4 mg IVPUSH Q8H PRN PRN Reason: Nausea and Vomiting Last Admin: 02/27/23 06:44 Dose: 4 mg Sodium Chloride (0.9 % Sodium Chloride Flush 3 Ml Syringe) [address] [facility] Last Admin: 02/27/23 07:05 Dose: Not Given Home Medications Medication Instructions Recorded Confirmed Last Taken Type esomeprazole magnesium 20 mg 20 mg PO DAILY 02/26/23 02/26/23 02/26/23 History tablet,delayed release metoprolol succinate 100 mg 100 mg PO DAILY 02/26/23 02/26/23 02/26/23 History tablet,extended release 24 hr metoprolol succinate 25 mg 25 mg PO DAILY 02/26/23 02/26/23 02/26/23 History tablet,extended release 24 hr ondansetron HCl 4 mg tablet 4 mg PO Q8H PRN Nausea 02/26/23 02/26/23 Unknown History timolol maleate 0.5 % eye drops 1 drp ophthalmic (eye) QAM 02/26/23 02/26/23 02/26/23 History Physical Exam Vital Signs: Vital Signs: Last Vital Signs Temp 98.4 F 02/27/23 06:16 Pulse 115 H 02/27/23 06:16 Resp 18 02/27/23 06:16 BP 168/103 H 02/27/23 06:16 Pulse Ox 97 02/27/23 06:16 O2 Del Method Room Air 02/27/23 06:16 BMI result Body Mass Index 25.7 Const: General: cooperative, comfortable, no acute distress, alert, awake and confusion Nutritional Appearance: average body habitus Orientation/consciousness: confusion HEENT: Head: Yes normocephalic and Yes atraumatic Neck: Neck: Yes trachea midline, Yes supple and Yes no JVD Resp: Effort & Inspection: decreased respiratory effort Auscultation: clear to auscultation bilaterally Cardio: Jugular venous distension: no JVD Rhythm: abnormal rhythm irregularly irregular Heart sounds: S1 normal heart sound present, S2 normal heart sound present, no click, no gallops, no murmurs and no rubs GI: Auscultation: normal bowel sounds Skin: General skin exam: no rashes or lesions noted Neuro: General: no focal motor deficits and confusion Extrem: General: Yes no clubbing, cyanosis or edema Objective Labs and Meds 02/27/23 05:22 02/27/23 05:22 Lab results: Laboratory Results - last 24 hr 02/26/23 02/26/23 02/27/23 15:56 19:57 03:30 WBC 7.5 RBC 3.71 L Hgb 12.1 Hct 34.6 L MCV 93.3 MCH 32.6 MCHC 35.0 RDW 12.6 Plt Count 340 MPV 9.2 L Immature Gran % (Auto) 0.5 H Neut % (Auto) 72.1 Lymph % (Auto) 17.6 L [place] % (Auto) 8.5 Eos % (Auto) 0.9 Baso % (Auto) 0.4 Lymph # (Auto) 1.3 [place] # (Auto) 0.6 Eos # (Auto) 0.1 Baso # (Auto) 0.0 Abs Immat Gran (auto) 0.04 H Absolute Neuts (auto) 5.4 Absolute Nucleated RBC 0.000 Nucleated RBC % (auto) 0.0 PT 14.4 H INR 1.2 H APTT 29.5 Sodium 124 L Potassium 5.1 Chloride 89 L Carbon Dioxide 24 Anion Gap 16 BUN 13 Creatinine 1.03 Estim Creat Clear Calc 37.1 Estimated GFR 51 Random Glucose 124 H Osmolality 261 L Calcium 9.3 D Phosphorus 4.1 Magnesium 1.6 Total Bilirubin 0.3 AST 42 H ALT 29 Alkaline Phosphatase 63 Troponin I High Sens 14.4 Total Protein 7.1 Albumin 4.0 Lipase 20 TSH 3.25 Urine Color Dark Yellow Urine Appearance Cloudy Urine pH 5.5 Ur Specific [place] 1.025 Urine Protein 100 (2+) H Urine Glucose (UA) Negative Urine Ketones 15 Urine Blood Negative Urine Nitrite Negative Ur Leukocyte Esterase Negative Urine RBC 3-5 H Urine WBC 0-5 Ur Squamous Epith Cells >20 Urine Bacteria Trace Hyaline Casts 6-10 Urine Osmolality 565 Ur Random Sodium < 20.0 02/27/23 05:22 WBC 7.0 RBC 3.59 L Hgb 11.5 L Hct 32.7 L MCV 91.1 MCH 32.0 MCHC 35.2 H RDW 12.3 Plt Count 324 MPV 9.3 L Immature Gran % (Auto) 0.3 Neut % (Auto) 64.4 Lymph % (Auto) 21.1 [place] % (Auto) 12.5 H Eos % (Auto) 1.1 Baso % (Auto) 0.6 Lymph # (Auto) 1.5 [place] # (Auto) 0.9 Eos # (Auto) 0.1 Baso # (Auto) 0.0 Abs Immat Gran (auto) 0.02 Absolute Neuts (auto) 4.5 Absolute Nucleated RBC 0.000 Nucleated RBC % (auto) 0.0 PT INR APTT Sodium 126 L Potassium 4.7 Chloride 90 L Carbon Dioxide 23 Anion Gap 18 BUN 14 Creatinine 0.92 Estim Creat Clear Calc 41.5 Estimated GFR 58 Random Glucose 101 Osmolality Calcium 9.3 Phosphorus Magnesium Total Bilirubin AST ALT Alkaline Phosphatase Troponin I High Sens Total Protein Albumin Lipase TSH Urine Color Urine Appearance Urine pH Ur Specific [place] Urine Protein Urine Glucose (UA) Urine Ketones Urine Blood Urine Nitrite Ur Leukocyte Esterase Urine RBC Urine WBC Ur Squamous Epith Cells Urine Bacteria Hyaline Casts Urine Osmolality Ur Random Sodium Assessment and Plan (1) Atrial fibrillation with RVR: Status: Acute Atrial fibrillation rapid ventricular response on admission of unclear duration, new onset. Patient's and patient's daughter not aware of any prior diagnosis of atrial fibrillation. This could explain some of her symptoms of weakness although she does appear to have any overt signs of heart failure. Will obtain an echocardiogram. Check TSH. Given her neurologic symptoms would consider brain imaging to rule out any embolic phenomena in. Rate is adequately control at this point time and patient is not having any symptoms will continue to pursue rate control approach, would start on metoprolol 25 mg q.6 hours and titrate as needed. Also start on oral anticoagulation therapy with Eliquis, 5 mg b.i.d.. Continue supportive care workup for change in mental status which does not appear to be explained by atrial fibrillation directly. Will follow with you. Procedures Date of Service Date of Service: 02/27/23
--- NOTE | 2023-02-27 11:46 | HO.PM.IMPN ---
Subjective Subjective Date of Service: 02/28/23 Interval History: f/u on Afib with RVR, Hyponatremia. Family at bedside reporting that patient has been experiencing weakness and confusion for nearly a week, but localized symptomsof weakness.. HR remains high, up to 140, additional IV cardizem given and started on oral metoprol Physical Exam Vital Signs: Vital Signs: Last Vital Signs Temp 98.4 F 02/27/23 06:16 Pulse 115 H 02/27/23 06:16 Resp 18 02/27/23 06:16 BP 168/103 H 02/27/23 06:16 Pulse Ox 97 02/27/23 06:16 O2 Del Method Room Air 02/27/23 06:16 BMI result Body Mass Index 25.7 Const: Other: General: AO X 3, no acute distress Resp: CTA bilateral CVS: S1,S2, iregular iregular GI: +BS, NT, no distention Skin: No rash Neuro: motor grossly intact Psych: appropriate affect Objective Data Active Medications Acetaminophen (Acetaminophen 325 Mg Tablet) 650 mg PO Q6H PRN PRN Reason: Pain, Mild (Pain Scale 1-3) Enoxaparin Sodium (Enoxaparin Sodium 40 Mg/0.4 Ml Syringe) 40 mg SUBCUT Q24H [facility] Last Admin: 02/26/23 20:58 Dose: 40 mg Documented By: SUSANA Melatonin (Melatonin 3 Mg Tablet) 6 mg PO BEDTIME PRN PRN Reason: Insomnia Last Admin: 02/26/23 21:08 Dose: 6 mg Documented By: SUSANA Ondansetron HCl (Ondansetron Hcl 4 Mg/2 Ml Vial) 4 mg IVPUSH Q8H PRN PRN Reason: Nausea and Vomiting Last Admin: 02/27/23 06:44 Dose: 4 mg Documented By: SUSANA Sodium Chloride (0.9 % Sodium Chloride Flush 3 Ml Syringe) 3 ml IVFLUSH QSHIFT [facility] Last Admin: 02/27/23 07:05 Dose: Not Given Documented By: JAY Non-Admin Reason: Med Not Available Labs 02/27/23 05:22 02/28/23 06:52 Labs: Laboratory Results - last 24 hr 02/26/23 02/26/23 02/27/23 15:56 19:57 03:30 MCV 93.3 MCH 32.6 MCHC 35.0 RDW 12.6 Plt Count 340 MPV 9.2 L Immature Gran % (Auto) 0.5 H Neut % (Auto) 72.1 Lymph % (Auto) 17.6 L [place] % (Auto) 8.5 Eos % (Auto) 0.9 Baso % (Auto) 0.4 Lymph # (Auto) 1.3 [place] # (Auto) 0.6 Eos # (Auto) 0.1 Baso # (Auto) 0.0 Abs Immat Gran (auto) 0.04 H Absolute Neuts (auto) 5.4 Absolute Nucleated RBC 0.000 Nucleated RBC % (auto) 0.0 PT 14.4 H INR 1.2 H APTT 29.5 Anion Gap 16 Estim Creat Clear Calc 37.1 Estimated GFR 51 Random Glucose 124 H Osmolality 261 L Calcium 9.3 D Phosphorus 4.1 Magnesium 1.6 Total Bilirubin 0.3 AST 42 H ALT 29 Alkaline Phosphatase 63 Total Protein 7.1 Albumin 4.0 Lipase 20 TSH 3.25 Urine Color Dark Yellow Urine Appearance Cloudy Urine pH 5.5 Ur Specific [place] 1.025 Urine Protein 100 (2+) H Urine Glucose (UA) Negative Urine Ketones 15 Urine Blood Negative Urine Nitrite Negative Ur Leukocyte Esterase Negative Urine RBC 3-5 H Urine WBC 0-5 Ur Squamous Epith Cells >20 Urine Bacteria Trace Hyaline Casts 6-10 Urine Osmolality 565 Ur Random Sodium < 20.0 02/27/23 05:22 MCV 91.1 MCH 32.0 MCHC 35.2 H RDW 12.3 Plt Count 324 MPV 9.3 L Immature Gran % (Auto) 0.3 Neut % (Auto) 64.4 Lymph % (Auto) 21.1 [place] % (Auto) 12.5 H Eos % (Auto) 1.1 Baso % (Auto) 0.6 Lymph # (Auto) 1.5 [place] # (Auto) 0.9 Eos # (Auto) 0.1 Baso # (Auto) 0.0 Abs Immat Gran (auto) 0.02 Absolute Neuts (auto) 4.5 Absolute Nucleated RBC 0.000 Nucleated RBC % (auto) 0.0 PT INR APTT Anion Gap 18 Estim Creat Clear Calc 41.5 Estimated GFR 58 Random Glucose 101 Osmolality Calcium 9.3 Phosphorus Magnesium Total Bilirubin AST ALT Alkaline Phosphatase Total Protein Albumin Lipase TSH Urine Color Urine Appearance Urine pH Ur Specific [place] Urine Protein Urine Glucose (UA) Urine Ketones Urine Blood Urine Nitrite Ur Leukocyte Esterase Urine RBC Urine WBC Ur Squamous Epith Cells Urine Bacteria Hyaline Casts Urine Osmolality Ur Random Sodium Assessment and Plan (1) Atrial fibrillation with RVR: Status: Acute (2) Hyponatremia: Status: Acute Plan This is a 83-year-old female with pertinent history of essential hypertension, gastroesophageal reflux disease who was brought to the emergency department for evaluation of abnormal labs. #. Hyponatremia--Ongoing work up by Nephrology, sodium level is going up ? SIADH #. AFib with RVR, new onset: Chads Vasc score 5. Rate control with oral Metoprolol or IV cardizem as needed, Head CT show no acute stroke, starting Eliquis 5 mg bid, echocardiogram #. Essential hypertension: Restarted home medication Toprolol XL 100 mg daily, usually 125 mg at home #. Gastroesophageal reflux disease: On PPI med rec completed. DVT prophylaxis: Eliquis Need for inpatient: Management for severe hyponatremia needing frequent labs to avoid rapid correction, AFIB with RVR being management with IV meds, cardiac monitoring and med adjugement and expert assessment Quality Stroke Does the patient have a stroke diagnosis?: No VTE Prior VTE?: No VTE Risk Level:: Medical - moderate - high VTE Device Contraindication: Treatment Not Indicated VTE Drug Contraindication: N/A - Med Ordered
--- NOTE | 2023-02-27 12:33 | MHC.CM.PN ---
CM MET WITH PT AND AT BEDSIDE PT IS INDEPENDENT AT BASELINE AND HAS NO HOME SERVICES SHE SAYS SHE HAS A WALKER SHE USES PRN SHE REPORTS SHE HAS A HCP NAMING HER HER AGENT -COPY REQUESTED PCP: OFELIA CORTES IN [place] IMM DELIVERED DCP: HOME NO SERVICES TO TRANSPORT
--- NOTE | 2023-02-27 13:32 | PC.NURSE ---
pt to overflow. report given to TATIANNA Bryan
[2023-02-27] MEDS: dilTIAZem HCL 50 MG/10 ML VIAL 10 MG IVPUSH (14:15)
[2023-02-27] MEDS: Metoprolol Succinate ER 100 MG TAB.ER.24H PO (14:17)
[2023-02-27] MEDS: Apixaban 5 MG TABLET PO ×2 (14:23→21:51)
[2023-02-27] MEDS: LORazepam 0.5 MG TABLET 0.25 MG PO (17:36)
[2023-02-27] MEDS: hydrALAZINE HCl 20 MG/ML VIAL 5 MG IVPUSH (17:37)
[2023-02-27] MEDS: 0.9 % Sodium Chloride Flush 3 ML SYRINGE IVFLUSH ×2 (17:37→21:55)
--- NOTE | 2023-02-27 19:42 | PM.CNNEP ---
History of Present Illness Reason for Consult Consult date: 02/27/23 Reason for consult: Hyponatremia Chief Complaint Chief complaint: Abnormal lab History of Present Illness Narrative: 83-year-old female with history of essential hypertension and recent cognitive decline, ongoing nausea and poor appetite who was brought to the emergency department for evaluation of abnormal labs. Sodium was found to be low . Patient states she got blood work about a week ago where sodium was low and hence they repeated blood work at PCPs office. No history of hyponatremia in the past. Does complain of nausea, fatigability over the last 7-10 days. No vomiting or diarrhea. No fever, chills, chest discomfort, palpitations, shortness of breath, abdominal pain, changes in urinary or bowel habits.In the emergency department, sodium was found to be 125 and patient was found to be in AFib with RVR. She was admitted for further management . Nephrology has been consulted to assist in her clinical care during her current hospital stay. Review of Systems Review of Systems Yes all other systems are reviewed and are negative PMFSH Past Medical History Medical History Osteoarthritis Gastroesophageal reflux disease Essential hypertension Social History Social History Household Members: Spouse Housing: House Do you presently have visiting nurse or other home services: No Alcohol intake: current Alcohol intake frequency: 0-2 drinks per day Alcohol type: wine Patient Tobacco Use Status: Former Tobacco user Advance Directives Date on File: 02/28/23 service: No Meds Allergies Allergy/AdvReac Type Severity Reaction Status Date / Time acetaminophen [Percocet] Allergy Unknown Verified 08/13/18 00:00 oxycodone [Percocet] Allergy Unknown Verified 08/13/18 00:00 Active Medications: Current Medications Acetaminophen (Acetaminophen 325 Mg Tablet) 650 mg PO Q6H PRN PRN Reason: Pain, Mild (Pain Scale 1-3) Apixaban (Apixaban 5 Mg Tablet) 5 mg PO BID [facility] Last Admin: 02/27/23 14:23 Dose: 5 mg Latanoprost (Latanoprost 0.005 % Ophth Mel 2.5 Ml Drops) 1 drop EYE-RIGHT BEDTIME [facility] Melatonin (Melatonin 3 Mg Tablet) 6 mg PO BEDTIME PRN PRN Reason: Insomnia Last Admin: 02/26/23 21:08 Dose: 6 mg Metoprolol Succinate (Metoprolol Succinate Er 100 Mg Tab.Er.24h) 100 mg PO DAILY [facility]; Protocol Last Admin: 02/27/23 14:17 Dose: 100 mg Omeprazole (Omeprazole 20 Mg Capsule.Dr) 20 mg PO DAILY@0630 [facility] Ondansetron HCl (Ondansetron Hcl 4 Mg/2 Ml Vial) 4 mg IVPUSH Q8H PRN PRN Reason: Nausea and Vomiting Last Admin: 02/27/23 06:44 Dose: 4 mg Sodium Chloride (0.9 % Sodium Chloride Flush 3 Ml Syringe) 3 ml IVFLUSH QSHIFT [facility] Last Admin: 02/27/23 17:37 Dose: 3 ml Timolol Maleate (Timolol Maleate 0.5 % Oph Mel 5 Ml Drbtl) 1 drop EYE-BOTH DAILY [facility] Last Admin: 02/27/23 14:19 Dose: Not Given Home Medications Medication Instructions Recorded Confirmed Last Taken Type esomeprazole magnesium 20 mg 20 mg PO DAILY 02/26/23 02/26/23 02/26/23 History tablet,delayed release metoprolol succinate 100 mg 100 mg PO DAILY 02/26/23 02/26/23 02/26/23 History tablet,extended release 24 hr metoprolol succinate 25 mg 25 mg PO DAILY 02/26/23 02/26/23 02/26/23 History tablet,extended release 24 hr ondansetron HCl 4 mg tablet 4 mg PO Q8H PRN Nausea 02/26/23 02/26/23 Unknown History timolol maleate 0.5 % eye drops 1 drp ophthalmic (eye) QAM 02/26/23 02/26/23 02/26/23 History latanoprost 0.005 % eye drops 1 drp ophthalmic-Right BEDTIME 02/27/23 02/27/23 02/26/23 History Physical Exam Vital Signs: Last Vital Signs Temp 97.9 F 02/27/23 17:02 Pulse 110 H 02/27/23 17:02 Resp 16 02/27/23 17:02 BP 169/123 H 02/27/23 17:02 Pulse Ox 96 02/27/23 16:45 O2 Del Method Room Air 02/27/23 16:45 BMI result Body Mass Index 25.7 Const General: no acute distress HEENT Head: Yes normocephalic Mouth: moist mucous membranes Eyes EOM: EOMs intact bilaterally Neck Neck: Yes supple Resp Auscultation: diminished lung sounds Cardio Jugular venous distension: no JVD Heart sounds: S1 normal heart sound present and S2 normal heart sound present GI Palpation (GI): Soft to palpation General: Yes no CVA tenderness Back/Spine/Pelvis Back: no CVA tenderness Skin General skin exam: no rashes or lesions noted Neuro General: moves all extremities Extrem General: Yes no pedal edema Results Lab Results 02/27/23 05:22 02/27/23 05:22 Lab results: Chemistry 02/26/23 02/27/23 15:56 05:22 Sodium 124 L 126 L Potassium 5.1 4.7 Carbon Dioxide 24 23 BUN 13 14 Creatinine 1.03 0.92 Calcium 9.3 D 9.3 Phosphorus 4.1 Hematology 02/26/23 02/27/23 15:56 05:22 WBC 7.5 7.0 Hgb 12.1 11.5 L Plt Count 340 324 Urinalysis 02/27/23 03:30 Urine Color Dark Yellow Urine Appearance Cloudy Urine pH 5.5 Ur Specific [place] 1.025 Urine Protein 100 (2+) H Urine Glucose (UA) Negative Urine Ketones 15 Urine Blood Negative Urine Nitrite Negative Ur Leukocyte Esterase Negative Urine RBC 3-5 H Urine WBC 0-5 Ur Squamous Epith Cells >20 Hyaline Casts 6-10 Urine Studies 02/27/23 03:30 Urine Osmolality 565 Assessment and Plan (1) Hyponatremia: Status: Acute Plan Likely multifactorial Urine sodium reviewed Has been having nausea (likely has excess ADH from it as well) Renal function normal TSH; AM cortisol ordered Will benefit from CXR No indication for hypertonic saline Shall consider giving a bolus of fluid given low Urine Na Needs to avoid rapid correction of Na Shall continue to closely F/U Procedures Date of Service Date of Service: 02/27/23
[2023-02-27] MEDS: Latanoprost 0.005 % Ophth Sol 2.5 ML DROPS 1 DROP EYE-RIGHT (21:51)
[2023-02-27] MEDS: guaiFENesin LA 600 MG TAB.ER.12H PO (22:53)
[2023-02-28] VITALS (11 sets, daily range): BP systolic 123–166; BP diastolic 80–105; PULSE 85–134; RESP 18–20; TEMP 36–36.7; O2SAT 91–96
[2023-02-28] MEDS: Benzonatate 100 MG CAPSULE 200 MG PO (01:23)
[2023-02-28] MEDS: ondansetron HCL 4 MG/2 ML VIAL IVPUSH ×2 (02:46→11:45)
[2023-02-28] MEDS: Omeprazole 20 MG CAPSULE.DR PO (06:16)
[2023-02-28] MEDS: Albuterol/Iprat 2.5/0.5MG 3 ML AMPUL.NEB INHALE ×2 (06:32→20:10)
[2023-02-28 07:54] LABS: Anion Gap 17 (12-20); Blood Urea Nitrogen 14 mg/dL (9-16); Calcium 9.1 mg/dL (8.4-10.2); Carbon Dioxide 23 mmol/L (22-29); Chloride 89 mmol/L (96-108); Creatinine Clr Calc Pharmacy 43.4; Estimated Glomerular Filt Rate > 60; Glucose Random 107 mg/dL (60-115); Potassium 4.3 mmol/L (3.3-5.1); Sodium 125 mmol/L (135-145)
[2023-02-28 08:01] LABS: Cortisol Random 21.3 ug/dL
[2023-02-28] MEDS: 0.9 % Sodium Chloride Flush 3 ML SYRINGE IVFLUSH ×3 (08:53→21:20)
[2023-02-28] MEDS: timoloL maleate 0.5 % Oph Sol 5 ML DRBTL 1 DROP EYE-BOTH (08:53)
[2023-02-28] MEDS: Apixaban 5 MG TABLET PO ×2 (08:53→21:19)
[2023-02-28] MEDS: Metoprolol Succinate ER 100 MG TAB.ER.24H PO (08:53)
--- NOTE | 2023-02-28 10:37 | PM.PNCARD ---
Subjective Subjective Date of Service: 02/28/23 Principal diagnosis: Atrial fibrillation Interval history: Patient remains with atrial fibrillation rapid ventricular response. This is despite her receiving p.o. metoprolol 100 mg which received again today. Appears slightly anxious but less confused today. Appears much better than yesterday. Sodium levels have improved. She denies any cardiac symptoms. Last night had some respiratory issue with wheezing. No heart failure symptoms. Review of Systems Constitutional: Reports no additional constitutional complaints Cardiovascular: Reports no additional cardiovascular complaints Respiratory: Reports wheezing Gastrointestinal: Reports no additional gastrointestinal complaints Reports confusion Psychiatric: Reports no additional psychiatric complaints and Reports confusion Endocrine: Reports no additional endocrine complaints Allergic/Immunologic: Reports wheezing Physical Exam Vital Signs: Last Vital Signs Temp 98.0 F 02/28/23 07:50 Pulse 134 H 02/28/23 07:50 Resp 20 02/28/23 07:50 BP 154/96 H 02/28/23 07:50 Pulse Ox 96 02/28/23 07:50 O2 Del Method Room Air 02/28/23 07:50 BMI result Body Mass Index 25.7 Const General: cooperative, comfortable, no acute distress, alert, awake and confusion Nutritional Appearance: average body habitus Orientation/consciousness: confusion HEENT Head: Yes normocephalic and Yes atraumatic Neck Neck: Yes trachea midline, Yes supple and Yes no JVD Resp Effort & Inspection: decreased respiratory effort Auscultation: clear to auscultation bilaterally Cardio Jugular venous distension: no JVD Rhythm: abnormal rhythm irregularly irregular Heart sounds: S1 normal heart sound present, S2 normal heart sound present, no click, no gallops, no murmurs and no rubs GI Auscultation: normal bowel sounds Skin General skin exam: no rashes or lesions noted Neuro General: no focal motor deficits and confusion Extrem General: Yes no clubbing, cyanosis or edema Objective Labs and Meds 02/27/23 05:22 02/28/23 06:52 Lab results: Laboratory Results - last 24 hr 02/28/23 02/28/23 06:52 07:19 Hold Purple Top SEE NOTE Sodium 125 L Potassium 4.3 Chloride 89 L Carbon Dioxide 23 Anion Gap 17 BUN 14 Creatinine 0.88 Estim Creat Clear Calc 43.4 Estimated GFR > 60 Random Glucose 107 Calcium 9.1 Random Cortisol 21.3 Imaging Radiologist's impression: Impressions Head CT 02/27/23 13:06 IMPRESSION: 1. No acute intracranial pathology. 2. Chronic white matter small vessel ischemic changes. Chest X-Ray 02/28/23 10:13 IMPRESSION: Probable tiny bilateral pleural effusions. Progress Note: A&P Assessment and plan (1) Atrial fibrillation with RVR: Status: Acute Assessment and Plan: Atrial fibrillation rapid ventricular response, with uncontrolled response despite use of metoprolol therapy. Add Cardizem 30 mg q.6 hours to her regimen. If required can give digoxin couple of doses in the afternoon time rate remains difficult control. Continue aggressive blood pressure control and can and valsartan to her regimen. Continue full oral anticoagulation with Eliquis. Her mental status seems to have improved and is not associated or related to atrial fibrillation. Will follow with you Time Spent With Patient Time: Total time managing care of this patient today ____ minutes. Progress Note: Quality Stroke Does the patient have a stroke diagnosis?: No Procedures Date of Service Date of Service: 02/28/23
[2023-02-28] MEDS: dilTIAZem HCL 30 MG TABLET PO ×3 (10:41→21:19)
--- NOTE | 2023-02-28 10:43 | MHC.CM.PN ---
Per MD rounds patient is not medically cleared for dc at this time - continued afib with RVR and hyponatremia. CM will continue to follow for dc needs.
--- NOTE | 2023-02-28 13:28 | P.PNIM_ITS ---
Subjective Subjective Date of Service: 02/28/23 Interval History: She is less confused and feels more comfortable, HR is still high, cardizem Physical Exam 2 Vital Signs: Vital Signs: Last Vital Signs Temp 98.1 F 02/28/23 11:28 Pulse 106 H 02/28/23 11:28 Resp 20 02/28/23 11:28 BP 149/91 H 02/28/23 11:28 Pulse Ox 92 02/28/23 11:28 O2 Del Method Room Air 02/28/23 11:28 BMI result Body Mass Index 25.7 Const: Other: General: AO X 3, no acute distress Resp: CTA bilateral CVS: S1,S2, iregular iregular, trace leg edema GI: +BS, NT, no distention Skin: No rash Neuro: motor grossly intact Psych: appropriate affect Objective Data Active Medications Acetaminophen (Acetaminophen 325 Mg Tablet) 650 mg PO Q6H PRN PRN Reason: Pain, Mild (Pain Scale 1-3) Albuterol/Ipratropium (Albuterol/Iprat 2.5/0.5mg 3 Ml Ampul.Neb) 3 ml INHALE Q4H PRN PRN Reason: Wheezing Last Admin: 02/28/23 06:32 Dose: 3 ml Documented By: GUSTABO Apixaban (Apixaban 5 Mg Tablet) 5 mg PO BID [facility] Last Admin: 02/28/23 08:53 Dose: 5 mg Documented By: RADHA Benzonatate (Benzonatate 100 Mg Capsule) 200 mg PO TID PRN PRN Reason: Cough Last Admin: 02/28/23 01:23 Dose: 200 mg Documented By: FELISA Diltiazem HCl (Diltiazem Hcl 30 Mg Tablet) 30 mg PO Q6H [facility]; Protocol Last Admin: 02/28/23 10:41 Dose: 30 mg Documented By: RADHA Guaifenesin (Guaifenesin La 600 Mg Tab.Er.12h) 600 mg PO BID PRN PRN Reason: Cough Last Admin: 02/27/23 22:53 Dose: 600 mg Documented By: KALPANA Latanoprost (Latanoprost 0.005 % Ophth Mel 2.5 Ml Drops) 1 drop EYE-RIGHT BEDTIME [facility] Last Admin: 02/27/23 21:51 Dose: 1 drop Documented By: KALPANA Melatonin (Melatonin 3 Mg Tablet) 6 mg PO BEDTIME PRN PRN Reason: Insomnia Last Admin: 02/26/23 21:08 Dose: 6 mg Documented By: SUSANA Metoprolol Succinate (Metoprolol Succinate Er 100 Mg Tab.Er.24h) 100 mg PO DAILY [facility]; Protocol Last Admin: 02/28/23 08:53 Dose: 100 mg Documented By: RADHA Omeprazole (Omeprazole 20 Mg Capsule.Dr) 20 mg PO DAILY@0630 [facility] Last Admin: 02/28/23 06:16 Dose: 20 mg Documented By: FELISA Ondansetron HCl (Ondansetron Hcl 4 Mg/2 Ml Vial) 4 mg IVPUSH Q8H PRN PRN Reason: Nausea and Vomiting Last Admin: 02/28/23 11:45 Dose: 4 mg Documented By: RADHA Sodium Chloride (0.9 % Sodium Chloride Flush 3 Ml Syringe) 3 ml IVFLUSH QSHIFT [facility] Last Admin: 02/28/23 08:53 Dose: 3 ml Documented By: RADHA Timolol Maleate (Timolol Maleate 0.5 % Oph Mel 5 Ml Drbtl) 1 drop EYE-BOTH DAILY [facility] Last Admin: 02/28/23 08:53 Dose: 1 drop Documented By: RADHA Labs 02/27/23 05:22 02/28/23 06:52 Labs: Laboratory Results - last 24 hr 02/28/23 02/28/23 06:52 07:19 Hold Purple Top SEE NOTE Anion Gap 17 Estim Creat Clear Calc 43.4 Estimated GFR > 60 Random Glucose 107 Calcium 9.1 Random Cortisol 21.3 Assessment and Plan (1) Atrial fibrillation with RVR: Status: Acute (2) Hyponatremia: Status: Acute Plan This is a 83-year-old female with pertinent history of essential hypertension, gastroesophageal reflux disease who was brought to the emergency department for evaluation of abnormal labs. #. Hyponatremia--Ongoing work up by Nephrology, sodium level is going up ? SIADH, Sodium level is low, will discuss further with Nephroloy #. AFib with RVR, new onset: Chads Vasc score 5. Rate is finally controlled on Metoprolol, and Cardizem and if needed will add dig. Echo EF 50 to 55. Eliquis for AFIB #. Essential hypertension: Restarted home medication Toprolol XL 100 mg daily, usually 125 mg at home #. Gastroesophageal reflux disease: On PPI DVT prophylaxis: Eliquis Need for inpatient: Management for severe hyponatremia needing frequent labs to avoid rapid correction, AFIB with RVR being management with IV meds, cardiac monitoring and med adjugement and expert assessment Quality Stroke Does the patient have a stroke diagnosis?: No VTE Prior VTE?: No VTE Risk Level:: Medical - moderate - high VTE Device Contraindication: Treatment Not Indicated VTE Drug Contraindication: N/A - Med Ordered
[2023-02-28] MEDS: Furosemide 40 MG TABLET PO (17:26)
[2023-02-28] MEDS: LORazepam 0.5 MG TABLET 0.25 MG PO (17:26)
--- NOTE | 2023-02-28 21:12 | P.PNNP_ITS ---
Subjective Subjective Date of Service: 02/28/23 Principal diagnosis: Atrial fibrillation Interval history: Events noted; All recent data reviewed; D/W hospitalist Physical Exam 2 Vital Signs: Vital Signs: Last Vital Signs Temp 98.1 F 02/28/23 19:08 Pulse 115 H 02/28/23 20:16 Resp 20 02/28/23 20:16 BP 152/82 H 02/28/23 19:08 Pulse Ox 94 02/28/23 19:08 O2 Del Method Room Air 02/28/23 19:08 BMI result Body Mass Index 25.7 Const: General: no acute distress HEENT: Head: Yes normocephalic Eyes: EOM: EOMs intact bilaterally Neck: Neck: Yes supple Resp: Auscultation: clear to auscultation bilaterally Cardio: Rate: regular rate GI: Palpation (GI): Soft to palpation : General: Yes no CVA tenderness Back/Spine/Pelvis: Back: no CVA tenderness Skin: General skin exam: no rashes or lesions noted Neuro: General: moves all extremities Extrem: General: Yes no pedal edema Objective Data Labs 02/27/23 05:22 02/28/23 06:52 Labs: Laboratory Results - last 24 hr 02/28/23 02/28/23 06:52 07:19 Hold Purple Top SEE NOTE Sodium 125 L Potassium 4.3 Chloride 89 L Carbon Dioxide 23 Anion Gap 17 BUN 14 Creatinine 0.88 Estim Creat Clear Calc 43.4 Estimated GFR > 60 Random Glucose 107 Calcium 9.1 Random Cortisol 21.3 Procedures Date of Service Date of Service: 02/28/23 Assessment & Plan Assessment and plan (1) Hyponatremia: Status: Acute Plan Likely multifactorial Urine sodium reviewed (likely has excess ADH from it as well) Renal function normal CXR reviewed; Lasix 40 mg today Labs AM; Shall continue to closely F/U Progress Note: Quality Stroke Does the patient have a stroke diagnosis?: No
[2023-02-28] MEDS: Latanoprost 0.005 % Ophth Sol 2.5 ML DROPS 1 DROP EYE-RIGHT (21:19)
[2023-03-01 03:42] VITALS: BP 119/87; PULSE 81; RESP 18; TEMP 36.3; O2SAT 94
[2023-03-01] MEDS: Omeprazole 20 MG CAPSULE.DR PO (05:01)
[2023-03-01] MEDS: dilTIAZem HCL 30 MG TABLET PO ×2 (05:01→09:03)
[2023-03-01] MEDS: ondansetron HCL 4 MG/2 ML VIAL IVPUSH (05:08)
[2023-03-01 07:50] VITALS: BP 120/82; PULSE 96; RESP 16; TEMP 36.6; O2SAT 92
[2023-03-01] MEDS: Benzonatate 100 MG CAPSULE 200 MG PO (09:02)
[2023-03-01] MEDS: 0.9 % Sodium Chloride Flush 3 ML SYRINGE IVFLUSH ×3 (09:02→20:46)
[2023-03-01] MEDS: Apixaban 5 MG TABLET PO ×2 (09:03→20:45)
[2023-03-01] MEDS: Metoprolol Succinate ER 100 MG TAB.ER.24H PO (09:05)
[2023-03-01] MEDS: timoloL maleate 0.5 % Oph Sol 5 ML DRBTL 1 DROP EYE-BOTH (09:26)
[2023-03-01] MEDS: dilTIAZem HCL 60 MG TABLET PO ×3 (09:46→20:45)
[2023-03-01 10:03] LABS: Anion Gap 19 (12-20); Blood Urea Nitrogen 11 mg/dL (9-16); Calcium 9.2 mg/dL (8.4-10.2); Carbon Dioxide 24 mmol/L (22-29); Chloride 87 mmol/L (96-108); Creatinine Clr Calc Pharmacy 48.9; Estimated Glomerular Filt Rate > 60; Glucose Random 109 mg/dL (60-115); Potassium 3.9 mmol/L (3.3-5.1); Sodium 126 mmol/L (135-145)
[2023-03-01 10:55] VITALS: BP 138/80; PULSE 87; RESP 20; TEMP 37.1; O2SAT 92
--- NOTE | 2023-03-01 11:29 | PM.PNCARD ---
Subjective Subjective Date of Service: 03/01/23 Principal diagnosis: Atrial fibrillation Interval history: Patient remains in atrial fibrillation with borderline rate control. Patient did not sleep well overnight as per the daughter and had increased confusion overnight most likely . Patient also had wheezing overnight. Complains of cough. There was suspicion for heart failure based on a sodium profile although clinically she has not had any significant fluid overload. Blood pressure is better controlled. Review of Systems Constitutional: Reports no additional constitutional complaints Cardiovascular: Denies chest pain, Denies lightheadedness, Denies Loss of Consciousness, Denies palpitations and Denies dyspnea Respiratory: Reports cough, Denies dyspnea and Reports wheezing Musculoskeletal: Reports no additional musculoskeletal complaints Skin/Breast: Reports system reviewed and no additional complaints, except as docu Reports confusion Psychiatric: Reports no additional psychiatric complaints and Reports confusion Endocrine: Denies palpitations Allergic/Immunologic: Reports wheezing Physical Exam Vital Signs: Last Vital Signs Temp 98.7 F 03/01/23 10:55 Pulse 87 03/01/23 10:55 Resp 20 03/01/23 10:55 BP 138/80 03/01/23 10:55 Pulse Ox 92 03/01/23 10:55 O2 Del Method Room Air 03/01/23 10:55 BMI result Body Mass Index 25.7 Const General: cooperative, comfortable, no acute distress, alert, awake and confusion Nutritional Appearance: average body habitus Orientation/consciousness: confusion HEENT Head: Yes normocephalic and Yes atraumatic Neck Neck: Yes trachea midline, Yes supple and Yes no JVD Resp Effort & Inspection: decreased respiratory effort Auscultation: rhonchi right upper Cardio Jugular venous distension: no JVD Rhythm: abnormal rhythm irregularly irregular Heart sounds: S1 normal heart sound present, S2 normal heart sound present, no click, no gallops, no murmurs and no rubs GI Auscultation: normal bowel sounds Skin General skin exam: no rashes or lesions noted Neuro General: no focal motor deficits and confusion Extrem General: Yes no clubbing, cyanosis or edema Objective Labs and Meds 02/27/23 05:22 03/01/23 09:36 Lab results: Laboratory Results - last 24 hr 03/01/23 09:36 Sodium 126 L Potassium 3.9 Chloride 87 L Carbon Dioxide 24 Anion Gap 19 BUN 11 Creatinine 0.78 Estim Creat Clear Calc 48.9 Estimated GFR > 60 Random Glucose 109 Calcium 9.2 Progress Note: A&P Assessment and plan (1) Atrial fibrillation with RVR: Status: Acute Assessment and Plan: Atrial fibrillation with difficult control rate could be related to a lot of different factors including confusion and agitation as well as respiratory issues with wheezing. Will continue to maximize Cardizem therapy and continue metoprolol therapy. Continue full oral anticoagulation with Eliquis. Continue treat underlying bronchospasm. Treating her confusion and delirium as medically necessary. Will follow of with you Time Spent With Patient Time: Total time managing care of this patient today ____ minutes. Progress Note: Quality Stroke Does the patient have a stroke diagnosis?: No Procedures Date of Service Date of Service: 03/01/23
--- NOTE | 2023-03-01 12:44 | HO.PM.IMPN ---
Subjective Subjective Date of Service: 03/01/23 Interval History: Patient report wheezing overnight, coughing at night, abd had to go to bathroom alot due to Lasix. She remains in afib with HR better controlled, sodium remains low at 126 Physical Exam Vital Signs: Vital Signs: Last Vital Signs Temp 98.7 F 03/01/23 10:55 Pulse 87 03/01/23 10:55 Resp 20 03/01/23 10:55 BP 138/80 03/01/23 10:55 Pulse Ox 92 03/01/23 10:55 O2 Del Method Room Air 03/01/23 10:55 BMI result Body Mass Index 25.7 Const: Other: General: AO X 3, no acute distress Resp: lungs are clear, she has some wheeze in upper airway CVS: S1,S2, iregular iregular, trace leg edema GI: +BS, NT, no distention Skin: No rash Neuro: motor grossly intact Psych: appropriate affect Objective Data Active Medications Acetaminophen (Acetaminophen 325 Mg Tablet) 650 mg PO Q6H PRN PRN Reason: Pain, Mild (Pain Scale 1-3) Albuterol/Ipratropium (Albuterol/Iprat 2.5/0.5mg 3 Ml Ampul.Neb) 3 ml INHALE Q4H PRN PRN Reason: Wheezing Last Admin: 02/28/23 20:10 Dose: 3 ml Documented By: CLAUDETTE Apixaban (Apixaban 5 Mg Tablet) 5 mg PO BID [facility] Last Admin: 03/01/23 09:03 Dose: 5 mg Documented By: FAYE Benzonatate (Benzonatate 100 Mg Capsule) 200 mg PO TID PRN PRN Reason: Cough Last Admin: 03/01/23 09:02 Dose: 200 mg Documented By: FAYE Diltiazem HCl (Diltiazem Hcl 60 Mg Tablet) 60 mg PO Q6H [facility]; Protocol Last Admin: 03/01/23 09:46 Dose: 60 mg Documented By: FAYE Guaifenesin (Guaifenesin La 600 Mg Tab.Er.12h) 600 mg PO BID PRN PRN Reason: Cough Last Admin: 03/01/23 09:06 Dose: 600 mg Documented By: FAYE Promethazine HCl 12.5 mg/ (Sodium Chloride) 50.5 mls @ 202 mls/hr IV Q6H PRN PRN Reason: Nausea and Vomiting Last Infusion: 03/01/23 09:54 Dose: Infused Documented By: FAYE Latanoprost (Latanoprost 0.005 % Ophth Mel 2.5 Ml Drops) 1 drop EYE-RIGHT BEDTIME [facility] Last Admin: 02/28/23 21:19 Dose: 1 drop Documented By: KALPANA Lorazepam (Lorazepam 0.5 Mg Tablet) 0.25 mg PO Q6H PRN PRN Reason: anxiety/restlessness Last Admin: 02/28/23 17:26 Dose: 0.25 mg Documented By: ZEUS Melatonin (Melatonin 3 Mg Tablet) 6 mg PO BEDTIME PRN PRN Reason: Insomnia Last Admin: 02/26/23 21:08 Dose: 6 mg Documented By: SUSANA Metoprolol Succinate (Metoprolol Succinate Er 100 Mg Tab.Er.24h) 100 mg PO DAILY [facility]; Protocol Last Admin: 03/01/23 09:05 Dose: 100 mg Documented By: FAYE Omeprazole (Omeprazole 20 Mg Capsule.Dr) 20 mg PO DAILY@0630 [facility] Last Admin: 03/01/23 05:01 Dose: 20 mg Documented By: KALPANA Ondansetron HCl (Ondansetron Hcl 4 Mg/2 Ml Vial) 4 mg IVPUSH Q8H PRN PRN Reason: Nausea and Vomiting Last Admin: 03/01/23 05:08 Dose: 4 mg Documented By: KALPANA Sodium Chloride (0.9 % Sodium Chloride Flush 3 Ml Syringe) 3 ml IVFLUSH QSHIFT [facility] Last Admin: 03/01/23 09:02 Dose: 3 ml Documented By: FAYE Timolol Maleate (Timolol Maleate 0.5 % Oph Mel 5 Ml Drbtl) 1 drop EYE-BOTH DAILY [facility] Last Admin: 03/01/23 09:26 Dose: 1 drop Documented By: FAYE Labs 02/27/23 05:22 03/01/23 09:36 Labs: Laboratory Results - last 24 hr 03/01/23 09:36 Anion Gap 19 Estim Creat Clear Calc 48.9 Estimated GFR > 60 Random Glucose 109 Calcium 9.2 Assessment and Plan (1) Atrial fibrillation with RVR: Status: Acute (2) Hyponatremia: Status: Acute Plan This is a 83-year-old female with pertinent history of essential hypertension, gastroesophageal reflux disease who was brought to the emergency department for evaluation of abnormal labs. #. Hyponatremia--Ongoing work up by Nephrology, sodium level is going up ? SIADH, Sodium level is low. Nephrology recommend urea 30 gram, IV Lsix and continue following level #. AFib with RVR, new onset: Chads Vasc score 5. Rate is controlled on Metoprolol, and Cardizem and if needed will add dig. Echo EF 50 to 55. Eliquis for AFIB #. Wheezing from upper airway, try of xopenex, pulmonology consult #. Essential hypertension: Restarted home medication Toprolol XL 100 mg daily, usually 125 mg at home #. Gastroesophageal reflux disease: On PPI DVT prophylaxis: Eliquis Need for inpatient: Management for severe hyponatremia needing frequent labs to avoid rapid correction, AFIB with RVR being management with IV meds, cardiac monitoring and med adjugement and expert assessment Quality Stroke Does the patient have a stroke diagnosis?: No VTE Prior VTE?: No VTE Risk Level:: Medical - moderate - high VTE Device Contraindication: Treatment Not Indicated VTE Drug Contraindication: N/A - Med Ordered
--- NOTE | 2023-03-01 13:24 | P.PNNP_ITS ---
Subjective Subjective Date of Service: 03/01/23 Principal diagnosis: Atrial fibrillation Interval history: Patient report wheezing overnight, coughing at night, and had to go to bathroom a lot due to Lasix. She remains in A Fib with better controlled HR, sodium remains at 126 Physical Exam 2 Vital Signs: Vital Signs: Last Vital Signs Temp 98.7 F 03/01/23 10:55 Pulse 87 03/01/23 10:55 Resp 20 03/01/23 10:55 BP 138/80 03/01/23 10:55 Pulse Ox 92 03/01/23 10:55 O2 Del Method Room Air 03/01/23 10:55 BMI result Body Mass Index 25.7 Const: General: no acute distress Orientation/consciousness: patient oriented x3 Eyes: EOM: EOMs intact bilaterally Resp: Auscultation: diminished lung sounds Cardio: Rate: regular rate Heart sounds: S1 normal heart sound present and S2 normal heart sound present GI: Palpation (GI): Soft to palpation Neuro: General: patient oriented x3 and moves all extremities Objective Data Labs 02/27/23 05:22 03/01/23 09:36 Labs: Laboratory Results - last 24 hr 03/01/23 09:36 Sodium 126 L Potassium 3.9 Chloride 87 L Carbon Dioxide 24 Anion Gap 19 BUN 11 Creatinine 0.78 Estim Creat Clear Calc 48.9 Estimated GFR > 60 Random Glucose 109 Calcium 9.2 Procedures Date of Service Date of Service: 03/01/23 Assessment & Plan Assessment and plan (1) Hyponatremia: Status: Acute Assessment and Plan: Likely multifactorial Urine sodium reviewed (likely has excess ADH from it as well) Renal function normal Last CXR reviewed; Lasix 40 mg again today PO Urea 30 Gram today Labs AM; Shall continue to closely F/U Progress Note: Quality Stroke Does the patient have a stroke diagnosis?: No
--- NOTE | 2023-03-01 15:29 | P.CONPL_ITS ---
History of Present Illness History of Present Illness Consult date: 03/01/23 Reason for consult: asthma and other (wheezing/ stridor ) Chief complaint: Abnormal lab Narrative: Pulmonary Consult . I have seen this 83 years old female for pulmonary consultation, this afternoon. Patient was hospitalized mainly because of abnormal labs especially hyponatremia, and general weakness. She has past history of hypertension, GE reflux being treated with medication. She has been feeling weak for the last 1 week or 10 days, and also has had feeling of nausea. On her presentation to the emergency room she was found to have atrial fibrillation with rapid ventricular response. Has been hospitalized and treated. Her main problem now is that did at nighttime she has had episodes of wheezing and stridor like sounds for the past 2 nights. This is new and she never had this complaint before. She has no past history of bronchial asthma or COPD. Patient denies smoking, say is that she quit many years ago. Review of Systems 2 Review of Systems: Yes all other systems are reviewed and are negative [facility] Past Medical History Medical History (Updated 03/01/23 @ 15:38 by Juancho Al MD) Wheezing Stridor Osteoarthritis Gastroesophageal reflux disease Essential hypertension Social History Social History Household Members: Spouse Housing: House Do you presently have visiting nurse or other home services: No Alcohol intake: current Alcohol intake frequency: 0-2 drinks per day Alcohol type: wine Patient Tobacco Use Status: Former Tobacco user Advance Directives Date on File: 02/28/23 service: No Meds Allergies Allergy/AdvReac Type Severity Reaction Status Date / Time acetaminophen [Percocet] Allergy Unknown Verified 08/13/18 00:00 oxycodone [Percocet] Allergy Unknown Verified 08/13/18 00:00 Active Medications: Current Medications Acetaminophen (Acetaminophen 325 Mg Tablet) 650 mg PO Q6H PRN PRN Reason: Pain, Mild (Pain Scale 1-3) Apixaban (Apixaban 5 Mg Tablet) 5 mg PO BID [facility] Last Admin: 03/01/23 09:03 Dose: 5 mg Benzonatate (Benzonatate 100 Mg Capsule) 200 mg PO TID PRN PRN Reason: Cough Last Admin: 03/01/23 09:02 Dose: 200 mg Diltiazem HCl (Diltiazem Hcl 60 Mg Tablet) 60 mg PO Q6H [facility]; Protocol Last Admin: 03/01/23 09:46 Dose: 60 mg Guaifenesin (Guaifenesin La 600 Mg Tab.Er.12h) 600 mg PO BID PRN PRN Reason: Cough Last Admin: 02/27/23 22:53 Dose: 600 mg Promethazine HCl 12.5 mg/ (Sodium Chloride) 50.5 mls @ 202 mls/hr IV Q6H PRN PRN Reason: Nausea and Vomiting Last Infusion: 03/01/23 09:54 Dose: Infused Latanoprost (Latanoprost 0.005 % Ophth Mel 2.5 Ml Drops) 1 drop EYE-RIGHT BEDTIME [facility] Last Admin: 02/28/23 21:19 Dose: 1 drop Levalbuterol HCl (Levalbuterol Hcl 1.25 Mg/3 Ml Vial.Neb) 1.25 mg INHALE Q4H PRN PRN Reason: Wheezing Lorazepam (Lorazepam 0.5 Mg Tablet) 0.25 mg PO Q6H PRN PRN Reason: anxiety/restlessness Last Admin: 02/28/23 17:26 Dose: 0.25 mg Melatonin (Melatonin 3 Mg Tablet) 6 mg PO BEDTIME PRN PRN Reason: Insomnia Last Admin: 02/26/23 21:08 Dose: 6 mg Metoprolol Succinate (Metoprolol Succinate Er 100 Mg Tab.Er.24h) 100 mg PO DAILY [facility]; Protocol Last Admin: 03/01/23 09:05 Dose: 100 mg Omeprazole (Omeprazole 20 Mg Capsule.Dr) 20 mg PO DAILY@0630 [facility] Last Admin: 03/01/23 05:01 Dose: 20 mg Ondansetron HCl (Ondansetron Hcl 4 Mg/2 Ml Vial) 4 mg IVPUSH Q8H PRN PRN Reason: Nausea and Vomiting Last Admin: 03/01/23 05:08 Dose: 4 mg Sodium Chloride (0.9 % Sodium Chloride Flush 3 Ml Syringe) 3 ml IVFLUSH QSHIFT [facility] Last Admin: 03/01/23 09:02 Dose: 3 ml Timolol Maleate (Timolol Maleate 0.5 % Oph Mel 5 Ml Drbtl) 1 drop EYE-BOTH DAILY [facility] Last Admin: 03/01/23 09:26 Dose: 1 drop Home Medications Medication Instructions Recorded Confirmed Last Taken Type esomeprazole magnesium 20 mg 20 mg PO DAILY 02/26/23 02/26/23 02/26/23 History tablet,delayed release metoprolol succinate 100 mg 100 mg PO DAILY 02/26/23 02/26/23 02/26/23 History tablet,extended release 24 hr metoprolol succinate 25 mg 25 mg PO DAILY 02/26/23 02/26/23 02/26/23 History tablet,extended release 24 hr ondansetron HCl 4 mg tablet 4 mg PO Q8H PRN Nausea 02/26/23 02/26/23 Unknown History timolol maleate 0.5 % eye drops 1 drp ophthalmic (eye) QAM 02/26/23 02/26/23 02/26/23 History latanoprost 0.005 % eye drops 1 drp ophthalmic-Right BEDTIME 02/27/23 02/27/23 02/26/23 History Physical Exam 2 Vital Signs: Vital Signs: Last Vital Signs Temp 98.7 F 03/01/23 10:55 Pulse 87 03/01/23 10:55 Resp 20 03/01/23 10:55 BP 138/80 03/01/23 10:55 Pulse Ox 92 03/01/23 10:55 O2 Del Method Room Air 03/01/23 10:55 BMI result Body Mass Index 25.7 Const: General: healthy appearing, comfortable, no acute distress, alert and awake Orientation/consciousness: patient oriented x3 HEENT: Head: Yes normal to inspection General nose exam: No nasal polyps present and No nasal discharge present Face and sinus: Yes sinuses nontender Mouth: oropharynx normal Throat: No posterior oropharynx normal (There is slight erythema of the posterior pharyngeal wall) Eyes: General: appearance normal, both eyes and all related structures Neck: Neck: Yes normal visual inspection, Yes no lymphadenopathy, Yes trachea midline and Yes no JVD Thyroid: Thyroid normal Chest: Chest palpation & inspection: normal inspection of the chest, normal palpation of entire chest wall and no tenderness Resp: Other: Percussion note is resonant, breath sounds are equal on both sides. I did not hear any wheezes or rhonchi. Cardio: Palpation: normal PMI Rate: regular rate Rhythm: regular rhythm Heart sounds: no gallops and no murmurs GI: Palpation (GI): Soft to palpation, nontender, No hepatosplenomegaly present and no masses Auscultation: normal bowel sounds Back/Spine/Pelvis: Other: Not examined Skin: General skin exam: no rashes or lesions noted Neuro: General: patient oriented x3 and no focal motor deficits Cranial nerves: Yes CN's II-XII intact bilaterally Extrem: General: Yes normal to inspection, Yes no clubbing, cyanosis or edema and Yes no calf tenderness Psych: Appearance: grossly normal and well kempt Speech and movement: N ormal speech and movement present Results Laboratory Findings 02/27/23 05:22 03/01/23 09:36 ABG, PT/INR, D-dimer: PT/INR, D-dimer PT 14.4 SEC (11.1-13.3) H 02/26/23 15:56 INR 1.2 (0.9-1.1) H 02/26/23 15:56 Abnormal lab findings: Abnormal Labs 02/26/23 02/26/23 02/27/23 15:56 19:57 03:30 RBC 3.71 L Hgb Hct 34.6 L MCHC MPV 9.2 L Immature Gran % (Auto) 0.5 H Lymph % (Auto) 17.6 L Shelby % (Auto) Abs Immat Gran (auto) 0.04 H PT 14.4 H INR 1.2 H Sodium 124 L Chloride 89 L Random Glucose 124 H Osmolality 261 L AST 42 H Urine Protein 100 (2+) H Urine RBC 3-5 H 02/27/23 02/28/23 03/01/23 05:22 06:52 09:36 RBC 3.59 L Hgb 11.5 L Hct 32.7 L MCHC 35.2 H MPV 9.3 L Immature Gran % (Auto) Lymph % (Auto) Shelby % (Auto) 12.5 H Abs Immat Gran (auto) PT INR Sodium 126 L 125 L 126 L Chloride 90 L 89 L 87 L Random Glucose Osmolality AST Urine Protein Urine RBC Diagnostic Findings Chest x-ray: report reviewed and image reviewed Assessment and Plan (1) Hyponatremia: Status: Acute (2) Atrial fibrillation with RVR: Status: Acute (3) Gastroesophageal reflux disease: Status: Acute (4) Essential hypertension: Status: Acute (5) Stridor: Status: Acute (6) Wheezing: Status: Acute Plan Patient admitted because of generalized weakness and hyponatremia, . Which has been corrected Atrial fib with rapid ventricular. Rate is under control at present Symptom of some wheezing and stridor like sounds especially at night, may be due to mild Laryngitis/ and laryngospasm, at night. Recc . Patient and his. Family reassured May be treated with albuterol updraft . P.r.n. When discharge home she can be prescribed albuterol HFA to use 2 puffs Q. 4-6 hours p.r.n. When she has recovered from her acute illness she can be seen as outpatient and evaluated with a pulmonary function test. Procedures Date of Service Date of Service: 03/01/23
[2023-03-01 15:45] VITALS: BP 144/90; PULSE 92; RESP 18; TEMP 37.4; O2SAT 93
[2023-03-01] MEDS: Furosemide 40 MG/4 ML VIAL IVPUSH (16:34)
[2023-03-01] MEDS: Urea 15 GM POWDER 30 GM PO (16:59)
--- NOTE | 2023-03-01 17:33 | PC.NURSE ---
I have 467 she had a choking episode on her ditalezem, which requires suctioning and 02. Pt bp was 220/110 its now now 168/92. she seems more confused and difficulty getting to commode bedside, which she has been ambulating to bathroom w walker. besides confusion, weakness no new deficits,physician notified
[2023-03-01 17:59] VITALS: BP 156/93
[2023-03-01 19:30] VITALS: BP 159/85; PULSE 69; RESP 17; TEMP 37.1; O2SAT 96
[2023-03-01] MEDS: Latanoprost 0.005 % Ophth Sol 2.5 ML DROPS 1 DROP EYE-RIGHT (20:45)
[2023-03-02] VITALS (7 sets, daily range): BP systolic 130–160; BP diastolic 85–100; PULSE 74–120; RESP 17–20; TEMP 36.3–37.3; O2SAT 90–97
[2023-03-02] MEDS: dilTIAZem HCL 60 MG TABLET PO ×2 (04:32→07:58)
[2023-03-02] MEDS: Omeprazole 20 MG CAPSULE.DR PO (05:50)
[2023-03-02 07:47] LABS: Anion Gap 16 (12-20); Blood Urea Nitrogen 37 mg/dL (9-16); Calcium 9.3 mg/dL (8.4-10.2); Carbon Dioxide 30 mmol/L (22-29); Chloride 85 mmol/L (96-108); Creatinine Clr Calc Pharmacy 43.9; Estimated Glomerular Filt Rate > 60; Glucose Random 124 mg/dL (60-115); Potassium 3.1 mmol/L (3.3-5.1); Sodium 128 mmol/L (135-145)
[2023-03-02] MEDS: Metoprolol Succinate ER 100 MG TAB.ER.24H PO (07:58)
[2023-03-02] MEDS: 0.9 % Sodium Chloride Flush 3 ML SYRINGE IVFLUSH ×2 (07:58→17:22)
[2023-03-02] MEDS: Benzonatate 100 MG CAPSULE 200 MG PO (07:58)
[2023-03-02] MEDS: Apixaban 5 MG TABLET PO ×2 (07:58→19:57)
[2023-03-02] MEDS: timoloL maleate 0.5 % Oph Sol 5 ML DRBTL 1 DROP EYE-BOTH (08:02)
--- NOTE | 2023-03-02 09:02 | MHC.CM.PN ---
PER REVIEW OF TODAY'S LABS, PATIENT STILL HYPONATREMIC. CASE MANAGEMENT FOLLOWING FOR ANY DC NEEDS.
--- NOTE | 2023-03-02 11:39 | PM.PNCARD ---
Subjective Subjective Date of Service: 03/02/23 Principal diagnosis: Atrial fibrillation Interval history: Patient's atrial fibrillation rate is well controlled. Wheezing has resolved. Although last night she had episode of choking with her bill intake and as per the daughter she became cyanotic. Her blood pressure was elevated heart rate was elevated. Review of Systems Review of Systems Yes all other systems are reviewed and are negative Reports confusion Psychiatric: Reports confusion Physical Exam Vital Signs: Last Vital Signs Temp 97.3 F 03/02/23 07:18 Pulse 74 03/02/23 09:39 Resp 20 03/02/23 07:18 BP 140/90 H 03/02/23 09:39 Pulse Ox 91 L 03/02/23 09:39 O2 Del Method Room Air 03/02/23 07:18 BMI result Body Mass Index 25.7 Const General: cooperative, comfortable, no acute distress, alert, awake and confusion Nutritional Appearance: average body habitus Orientation/consciousness: confusion HEENT Head: Yes normocephalic and Yes atraumatic Neck Neck: Yes trachea midline, Yes supple and Yes no JVD Resp Effort & Inspection: decreased respiratory effort Auscultation: rhonchi right upper Cardio Jugular venous distension: no JVD Rate: regular rate Rhythm: abnormal rhythm irregularly irregular Heart sounds: S1 normal heart sound present, S2 normal heart sound present, no click, no gallops, no murmurs and no rubs GI Auscultation: normal bowel sounds Skin General skin exam: no rashes or lesions noted Neuro General: no focal motor deficits and confusion Extrem General: Yes no clubbing, cyanosis or edema Objective Labs and Meds 02/27/23 05:22 03/02/23 06:59 Lab results: Laboratory Results - last 24 hr 03/02/23 06:59 Hold Purple Top SEE NOTE Sodium 128 L Potassium 3.1 L D Chloride 85 L Carbon Dioxide 30 H Anion Gap 16 BUN 37 H Creatinine 0.87 Estim Creat Clear Calc 43.9 Estimated GFR > 60 Random Glucose 124 H Calcium 9.3 Progress Note: A&P Assessment and plan (1) Atrial fibrillation with RVR: Status: Acute Assessment and Plan: Atrial fibrillation with rate control on dual therapy with Toprol and Cardizem. Can switch Cardizem to long-acting 240 mg daily. From cardiac perspective can discharge home later today. Will follow-up as outpatient after Holter monitor. Continue full oral anticoagulation with Eliquis. Continue supportive care. Overall management in terms of her atrial fibrillation would be rate control given her other comorbidities including cognitive dysfunction. Will follow with her as outpatient Time Spent With Patient Time: Total time managing care of this patient today ____ minutes. Progress Note: Quality Stroke Does the patient have a stroke diagnosis?: No Procedures Date of Service Date of Service: 03/02/23
--- NOTE | 2023-03-02 11:49 | P.PNIM_ITS ---
Subjective Subjective Date of Service: 03/02/23 Interval History: Patient had an episode of chocking described by nurse as follow had a choking episode on her ditalezem, which requires suctioning and 02. Pt bp was 220/110 its now now 168/92. she seems more confused and difficulty getting to commode bedside Daughter also described the incident as her turning blue. She continued to improved, and was able to swallow pills without difficulty later and according to the daughter did better the night, with no noticeable wheezing as before and she's more clear and lucid this morning,. Bloop pressure is better and HR in 70s and 80s, AFIB. Sodium level has improved to 128 Review of Systems no chest pain, so sore throat, no sob, no confusion, occasionally still having nausea Physical Exam 2 Vital Signs: Vital Signs: Last Vital Signs Temp 97.3 F 03/02/23 07:18 Pulse 74 03/02/23 09:39 Resp 20 03/02/23 07:18 BP 140/90 H 03/02/23 09:39 Pulse Ox 91 L 03/02/23 09:39 O2 Del Method Room Air 03/02/23 07:18 BMI result Body Mass Index 25.7 Const: Other: General: AO X 3, no acute distress Resp: lungs are clear, now wheeze at all CVS: S1,S2, iregular iregular, trace leg edema GI: +BS, NT, no distention Skin: No rash Neuro: motor grossly intact Psych: appropriate affect Objective Data Active Medications Acetaminophen (Acetaminophen 325 Mg Tablet) 650 mg PO Q6H PRN PRN Reason: Pain, Mild (Pain Scale 1-3) Apixaban (Apixaban 5 Mg Tablet) 5 mg PO BID SOHAIL Last Admin: 03/02/23 07:58 Dose: 5 mg Documented By: FAYE Benzonatate (Benzonatate 100 Mg Capsule) 200 mg PO TID PRN PRN Reason: Cough Last Admin: 03/02/23 07:58 Dose: 200 mg Documented By: FAYE Guaifenesin (Guaifenesin La 600 Mg Tab.Er.12h) 600 mg PO BID PRN PRN Reason: Cough Last Admin: 02/27/23 22:53 Dose: 600 mg Promethazine HCl 12.5 mg/ (Sodium Chloride) 50.5 mls @ 202 mls/hr IV Q6H PRN PRN Reason: Nausea and Vomiting Last Infusion: 03/02/23 09:21 Dose: Infused Documented By: FAYE Latanoprost (Latanoprost 0.005 % Ophth Mel 2.5 Ml Drops) 1 drop EYE-RIGHT BEDTIME [facility] Last Admin: 03/01/23 20:45 Dose: 1 drop Documented By: KALPANA Levalbuterol HCl (Levalbuterol Hcl 1.25 Mg/3 Ml Vial.Neb) 1.25 mg INHALE Q4H PRN PRN Reason: Wheezing Lorazepam (Lorazepam 0.5 Mg Tablet) 0.25 mg PO Q6H PRN PRN Reason: anxiety/restlessness Last Admin: 02/28/23 17:26 Dose: 0.25 mg Documented By: ZEUS Melatonin (Melatonin 3 Mg Tablet) 6 mg PO BEDTIME PRN PRN Reason: Insomnia Last Admin: 02/26/23 21:08 Dose: 6 mg Documented By: SUSANA Metoprolol Succinate (Metoprolol Succinate Er 100 Mg Tab.Er.24h) 100 mg PO DAILY [facility]; Protocol Last Admin: 03/02/23 07:58 Dose: 100 mg Documented By: FAYE Omeprazole (Omeprazole 20 Mg Capsule.Dr) 20 mg PO DAILY@0630 [facility] Last Admin: 03/02/23 05:50 Dose: 20 mg Documented By: KALPANA Ondansetron HCl (Ondansetron Hcl 4 Mg/2 Ml Vial) 4 mg IVPUSH Q8H PRN PRN Reason: Nausea and Vomiting Last Admin: 03/01/23 05:08 Dose: 4 mg Documented By: KALPANA Sodium Chloride (0.9 % Sodium Chloride Flush 3 Ml Syringe) 3 ml IVFLUSH QSHIFT [facility] Last Admin: 03/02/23 07:58 Dose: 3 ml Documented By: FAYE Timolol Maleate (Timolol Maleate 0.5 % Oph Mel 5 Ml Drbtl) 1 drop EYE-BOTH DAILY [facility] Last Admin: 03/02/23 08:02 Dose: 1 drop Documented By: FAYE Labs 02/27/23 05:22 03/02/23 06:59 Labs: Laboratory Results - last 24 hr 03/02/23 06:59 Hold Purple Top SEE NOTE Anion Gap 16 Estim Creat Clear Calc 43.9 Estimated GFR > 60 Random Glucose 124 H Calcium 9.3 Assessment and Plan (1) Atrial fibrillation with RVR: Status: Acute (2) Hyponatremia: Status: Acute Plan This is a 83-year-old female with pertinent history of essential hypertension, gastroesophageal reflux disease who was brought to the emergency department for evaluation of abnormal labs. #. Hyponatremia--Sodium level continue to trend up, given IV Lasix 40 daily x 2, Urea powder 30 yesterday. Nephrology to guide us with further management. #. AFib with RVR, new onset: Chads Vasc score 5. Rate is controlled on Metoprolol, and Cardizem and if needed will add dig. Changing Cardizem CD 240 at night and continue Toprolol 100 mg in AM. Echo EF 50 to 55. Eliquis for AFIB #. Wheezing from upper airway, try of xopenex, pulmonology consult recommended xopenex, O2 as needed #. Hypokalemia, replace orally and repeat level tomorrow, check mag #. Essential hypertension: Restarted home medication Toprolol XL 100 mg daily, usually 125, and cardizem added as above #. Gastroesophageal reflux disease: On PPI #. Chocking episode--appear to be an isolated event and has not had any probelm taking pills or food, however will have speech assess her swallowing DVT prophylaxis: Eliquis Need for inpatient: Management for severe hyponatremia needing frequent labs to avoid rapid correction, AFIB with RVR being management with IV meds, cardiac monitoring and med adjugement and expert assessment PT eval today, plan discussed with family Quality Stroke Does the patient have a stroke diagnosis?: No VTE Prior VTE?: No VTE Risk Level:: Medical - moderate - high VTE Device Contraindication: Treatment Not Indicated VTE Drug Contraindication: N/A - Med Ordered
[2023-03-02] MEDS: Acetaminophen 325 MG TABLET 650 MG PO (13:31)
[2023-03-02 13:43] LABS: IDNOW Serial# 08D9AD1C; Strep A Nucleic Acid Negative (Negative)
--- NOTE | 2023-03-02 13:58 | MHC.SL.SWA ---
Speech Pathologist Impression: Oral phase dysphagia Dysphasia Diet Status: No change Liquid Consistency and Strategies for Safe Swallow: Liquid Intake Recommendation: Thin Liquid Intake Strategies: Small Sips No Straws Solid Food Consistency: Dietary Recommendations: Regular Additional Modifications to Solid Foods: Recommend continue on unmodified diet REGULAR solids and THIN liquids. As a precaution to recent choking episode with pills, pt is recommended aspiration precautions, total supervision during meals, pills to be crushed with puree when possible. PROFESSOR OF RELIGION advised pt on aspiration precautions. PROFESSOR OF RELIGION to f/u 1x to ensure tolerance. Oral Medication Intake: Crushed with Puree Please contact the pharmacy regarding appropriate crushable or liquid drug formulations that are available whenever modified delivery is recommended. Compensatory Strategies and Precautions to be Taken for Safe Swallow: Sitting Upright (90 deg) Double Swallow No Straw Small Bites and Sips Alternate Liquids/Solids Rate of Ingestion Change Avoid Specific Foods Supervision While Eating and Drinking for Safe Swallow: Total Supervision (1:1) Foods to Avoid: Hard, tough to chew solids Swallowing Recommended Treatments: Compens. Strategy Educat. Recommendation for Speech: Inpatient Speech Therapy Comment: Frequency/Duration: 1 f/u Date Range for Service Req: Timeline to reassess: Blower Operator Clinican/Clinical Fellow: No Supervisory Statement: I have reviewed and agree with the student/clinical fellow's documentation: N/A Speech Language Pathologist: Alessandra Tejeda M.A., CCC-PROFESSOR OF RELIGION
--- NOTE | 2023-03-02 14:24 | MHC.CM.PN ---
P.T. IS RECOMMENDING HOME WITH SERVICES. REFERRAL PLACED TO [facility] WITH A REQUEST TO FOLLOW
[2023-03-02 14:25] LABS: IDNOW Serial# 9DB6401D
[2023-03-02 14:26] LABS: COVID-19 Test Negative (Negative)
--- NOTE | 2023-03-02 16:58 | P.PNNP_ITS ---
Subjective Subjective Date of Service: 03/02/23 Principal diagnosis: Atrial fibrillation Interval history: Blood pressure is better and HR in 70s and 80s, AFIB. Sodium level has improved to 128 Physical Exam 2 Vital Signs: Vital Signs: Last Vital Signs Temp 97.8 F 03/02/23 15:51 Pulse 108 H 03/02/23 15:51 Resp 20 03/02/23 15:51 BP 130/95 H 03/02/23 15:51 Pulse Ox 90 L 03/02/23 15:51 O2 Del Method Room Air 03/02/23 15:51 BMI result Body Mass Index 25.7 Const: General: no acute distress Eyes: EOM: EOMs intact bilaterally Neck: Neck: Yes supple Resp: Auscultation: clear to auscultation bilaterally Cardio: Rate: regular rate GI: Palpation (GI): Soft to palpation : General: Yes no CVA tenderness Back/Spine/Pelvis: Back: no CVA tenderness Skin: General skin exam: no rashes or lesions noted Neuro: General: moves all extremities Objective Data Labs 02/27/23 05:22 03/02/23 06:59 Labs: Laboratory Results - last 24 hr 03/02/23 03/02/23 03/02/23 06:59 12:55 13:23 Hold Purple Top SEE NOTE Sodium 128 L Potassium 3.1 L D Chloride 85 L Carbon Dioxide 30 H Anion Gap 16 BUN 37 H Creatinine 0.87 Estim Creat Clear Calc 43.9 Estimated GFR > 60 Random Glucose 124 H Calcium 9.3 COVID-19 (SANDY) Negative COVID-19 Clin Com See Note S. pyogenes GrpA NORIS Negative Procedures Date of Service Date of Service: 03/02/23 Assessment & Plan Assessment and plan (1) Hyponatremia: Status: Acute Plan Likely multifactorial Urine sodium reviewed (likely has excess ADH from it as well) Renal function normal Lasix 40 mg again yesterday PO Urea 30 Gram today Labs AM; Shall continue to closely F/U in office with me when D/Noe Progress Note: Quality Stroke Does the patient have a stroke diagnosis?: No
[2023-03-02] MEDS: Urea 15 GM POWDER 30 GM PO (17:19)
[2023-03-02] MEDS: Potassium Chloride Packet 20 MEQ PACKET PO (17:21)
[2023-03-02] MEDS: dilTIAZem HCL CD 240 MG CAP.ER.DEG PO (19:56)
[2023-03-02] MEDS: Latanoprost 0.005 % Ophth Sol 2.5 ML DROPS 1 DROP EYE-RIGHT (20:05)
[2023-03-03 06:53] LABS: Anion Gap 17 (12-20); Blood Urea Nitrogen 39 mg/dL (9-16); Calcium 9.4 mg/dL (8.4-10.2); Carbon Dioxide 29 mmol/L (22-29); Chloride 85 mmol/L (96-108); Creatinine Clr Calc Pharmacy 49.6; Estimated Glomerular Filt Rate > 60; Glucose Random 135 mg/dL (60-115); Potassium 3.1 mmol/L (3.3-5.1); Sodium 128 mmol/L (135-145)
[2023-03-03 07:21] VITALS: BP 157/98; PULSE 86; RESP 18; TEMP 36.2; O2SAT 92
[2023-03-03] MEDS: Apixaban 5 MG TABLET PO ×2 (08:48→20:03)
[2023-03-03] MEDS: Metoprolol Succinate ER 100 MG TAB.ER.24H PO (08:49)
[2023-03-03] MEDS: Potassium Chloride ER 20 MEQ TAB.ER.PRT 40 MEQ PO (08:49)
[2023-03-03] MEDS: 0.9 % Sodium Chloride Flush 3 ML SYRINGE IVFLUSH ×3 (08:49→20:03)
[2023-03-03] MEDS: timoloL maleate 0.5 % Oph Sol 5 ML DRBTL 1 DROP EYE-BOTH (08:50)
--- NOTE | 2023-03-03 10:42 | P.DS_ITS ---
DS: Providers Provider Date of Service: 03/03/23 Date of admission: 02/26/23 20:38 Primary care physician: Mannie Birch DO Consults: 02/26/23 20:49 Consult to Cardiology Routine Consulting Provider: [facility] [place] [facility] Reason for consultation: AFib with RVR Consult to Nephrology Routine Consulting Provider: Chilango Manzanares Reason for consultation: hyponatremia 03/01/23 09:19 Consult to Pulmonology Routine Consulting Provider: [facility] [place] [facility] Reason for consultation: Stridor Has provider been notified: No DS: Diagnosis Discharge Diagnosis (1) Hyponatremia: Status: Acute DS: Summary Hospital Course Hospital Course: Chief Complaint: Abnormal labs This is a 83-year-old female with pertinent history of essential hypertension, gastroesophageal reflux disease who was brought to the emergency department for evaluation of abnormal labs. Patient got blood work at her PCPs office. Sodium was found to be low and she was sent to the ER. Patient states she got blood work about a week ago at her bridge engineer's office where sodium was low and hence they repeated blood work at PCPs office. No history of hyponatremia in the past. Does complain of nausea, fatigability over the last 7-10 days. No vomiting or diarrhea. No fever, chills, chest discomfort, palpitations, shortness of breath, abdominal pain, changes in urinary or bowel habits. In the emergency department, sodium was found to be 125 and patient was found to be in AFib with RVR. Hospital course: The patient was referred to the emergency department (ED) for an assessment of a low sodium level, which was identified during an outpatient evaluation at the primary care physician's (PCP) office. Specifically, the sodium level was noted to be 124. The patient presented with symptoms of nausea and confusion. Additionally, she was diagnosed with atrial fibrillation characterized by a rapid ventricular response, with a heart rate reaching up to 140, and was initiated on IV cardizem. 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 The patient's management included fluid restriction, IV Lasix daily x 2 days, urea powder 30 gm daily x 2 days and 1 gm of salt tablet . Although the patient's sodium level has been slow to rise, it is currently stable at 133 and improvement is anticipated. Ongoing outpatient monitoring is recommended through her primary care provider. It would beneficial for her to continue to follow up with a bridge engineer and for her lab to be monitored on outpatient basis. The patient is advised to limit her daily water intake to no more than 1000 cc. The confusion, indicative of metabolic encephalopathy, is attributed to hyponatremia and possibly underlying dementia and has since resolved. Hypokalemia resulting from Lasix has been addressed with supplementation and has resolved. She will be maintained on Lasix 20 mg Sun,Sun , along potassium 20 meq on the same days. Also she was noted to have magnesium level of 1.5 and was given supplement with repeat level within normal range. As for New onset atrial fibrillation with rapid ventricular response (AFib with RVR): Patient has a CHADS-VASc score of 5. Despite being on Metoprolol at home, her heart rate was elevated. She initially was treated with IV Cardizem and was subsequently transitioned to oral Cardizem. In addition to her home dose of Metoprolol, Cardizem dosage has been adjusted to 120 mg bid, She will continue Toprol XL 125 mg in the morning and is prescribed Eliquis 5 mg twice daily for stroke prevention. Dr. Ann, the metal numerical tool programmer, guided her management, he recommends outpatient cardiology with him or another metal numerical tool programmer of the patient's choosing. Presently, her heart rate is in the 70s to 80s. Wheezing from the upper airway was evaluated by Dr. Al, the pattern drum maker, who recommended albuterol inhaler as needed upon discharge, and outpatient follow-up with him for pulmonary function test but patient did not have recurrent symptoms of wheezing. Essential hypertension: Her blood pressures have been intermittently high, particularly the diastolic blood but currently with her back on her home dose of Toprol XL 125 mg in the morning and new prescription of cardizem 120mg bid, her blood pressure is controlled and within normal range. Gastroesophageal reflux disease: Patient is on proton pump inhibitor (PPI). Choking episode on a pill, occurred twice and was evaluated by speech therapist on both occasions, she did well with solids and liquids no coughing or choking was noted as a precaution speech therapist recommended chopped diet with thin liquids and pills crushed in pureed or liquid form and possible, otherwise as per daughter patient has no issues at home swallowing food and declined GI evaluation. Nausea, has been ongoing for nearly 2 years , and being followed closely by primary care physician continue antiemetics as needed. Insomnia--we recommend Melatonin, in additional to Remron 7.5 mg at bedtime, this has potential for hyponatremia, albeit very low Family (daughter and ) have been updated on the plan of care. Disposition: will go home with visiting nurse services/PT. Time Attestation Discharge coordination time: Greater than 30 minutes Quality: Safe Use of Opioids Does Pt have an Active Cancer Diagnosis on the Problem List?: No Quality: Stroke Does the patient have a stroke diagnosis?: No Physical Exam Vital Signs: Vital Signs: Last Vital Signs Temp 97.1 F 03/03/23 07:21 Pulse 86 03/03/23 07:21 Resp 18 03/03/23 07:21 BP 157/98 H 03/03/23 07:21 Pulse Ox 92 03/03/23 07:21 O2 Del Method Room Air 03/03/23 07:21 BMI result Body Mass Index 25.7 DS: Data Data Completed and Pending Labs on day of discharge: Laboratory Results - last 24 hr 03/02/23 03/02/23 03/03/23 12:55 13:23 06:02 Hold Purple Top SEE NOTE Sodium 128 L Potassium 3.1 L Chloride 85 L Carbon Dioxide 29 Anion Gap 17 BUN 39 H Creatinine 0.77 Estim Creat Clear Calc 49.6 Estimated GFR > 60 Random Glucose 135 H Calcium 9.4 COVID-19 ([facility]Y) Negative COVID-19 Clin Com See Note S. pyogenes GrpA NORIS Negative Discharge Plan Discharge Anticipated Discharge Date/Time: 03/03/23 10:30 Patient Disposition: Home Health Service Discharge Diagnosis: Atrial fibrilation with rapid ventricular response, hyponatremia, hypokalemia, nausea, confusion Referrals: [facility] [Outside] - 1 Week Mannie Birch DO [Primary Care Provider] - 1 Week Discharge Medications: New Eliquis 5 mg Tablet 5 mg PO BID Qty: 30 0RF ondansetron 4 mg tablet,disintegrating 4 mg PO BEDTIME PRN (Reason: nausea and vomiting) Qty: 30 0RF mirtazapine 7.5 mg Tablet 7.5 mg PO BEDTIME Qty: 30 0RF diltiazem HCl 60 mg Tablet 120 mg PO BID Qty: 120 0RF furosemide [Lasix] 20 mg tablet 20 mg PO .mon,wed,sunday Qty: 30 0RF Rx Instructions: take lasix 20mg po on sunday,sunday and sunday with potassium 20 meq potassium chloride 20 mEq tablet,ER particles/crystals 20 meq PO .sun,sun,and sunday Qty: 30 0RF Rx Instructions: Take potassium on Sunday and Sunday 20 mEq tablet can break it in to half Continued metoprolol succinate 100 mg tablet extended release 24 hr 100 mg PO DAILY metoprolol succinate 25 mg tablet extended release 24 hr 25 mg PO DAILY timolol maleate 0.5 % drops 1 drp ophthalmic (eye) QAM latanoprost 0.005 % drops 1 drp ophthalmic-Right BEDTIME esomeprazole magnesium 20 mg Tablet,Delayed Release (Dr/Ec) 20 mg PO DAILY Qty: 30 0RF Discontinued ondansetron HCl 4 mg tablet 4 mg PO Q8H PRN (Reason: Nausea) Discharge Orders: Discharge Order (Routine); Ordered 03/05/23 Ordered By: Joseluis Rogel Diet: Advance to usual diet Activity on Discharge: As tolerated Stand Alone Forms: Patient Portal Discharge page Other Ambulatory Orders: Basic Metabolic Panel (Routine) Timeframe: 1 Week Facility: [facility] - Location: Laboratory Ordered By: Joseluis Rogel Magnesium (Routine) Timeframe: 1 Week Facility: [facility] - Location: Laboratory Ordered By: Joseluis Rogel Care Plan Goals: Control of atrial fibrilation control of blood pressure resolution of low sodium resolution of low potassium confusion to go away return to normal physical funtioning, Episode of choking on pills, take pills crushed in puree Health Concerns: Atrial fibrilation hyponatremia (low sodium) hypokelemia (low potassium) nauesea confusion Plan of Treatment: Take Cardizem and Metoprolol as recommended to treat atrial fibrilation (heart rate) take Eliquis to thin you blood and prevent stroke avoid drinking too much water, no theresa than 1.5 liters a day to keep sodium up you will have lab work done next week to recheck sodium,magnesium level take Zofran as needed for nausea or vomitting Take Remeron at bedtime for sleep Follow-up with primary care doctor Dr. Birch call for appointment arrange for metal numerical tool programmer for close outpatient monitoring You were seen by pattern drum maker Dr. Al for wheezing you can follow-up with him as outpatient for pulmonary function test, call for appointment Dr. Ann (heart doctor) saw you in-house You will need to follow upwith Dr. Brittani Lozano (Kidney and Sodium doctor) to check up on sodium and potassium level Assessment: see above Patient Instructions: Apixaban (By mouth), A-fib (Atrial Fibrillation) (GEN), Hypertension (GEN) Discharge Date/Time: 03/05/23 13:45
[2023-03-03 11:13] VITALS: BP 152/91; PULSE 79; RESP 17; TEMP 36.1; O2SAT 92
--- NOTE | 2023-03-03 11:53 | W.MHC.F2F ---
Service Date Service Date: 03/03/23 Encounter Date of encounter: 03/03/23 Reasons for Services Signs and symptoms assessed: generalized weakness from hosptialization and low sodium Reason for detention: medication management and teach disease management Reason for physical therapy: home safety and mobility, therapeutic exercises and energy conservation Homebound: Leaving the home is medically contraindicated at this time without the asist of a device and/or another person due th the listed conditions above and below. Reason homebound: fall risk related to blood pressure changes and weakness related to hospital stay Homebound supporting statement: homebound due to weakness related to hospitalization, hyponatremia risk of fall and therefore needs the assistance of another person Certification: Based on the above findings, I certify that this patient is confined to the home and needs intermittent detention care, physical therapy and/or speech therapy, or continues to need occupational therapy. The patient is under my care, and I have initiated the establishment of the plan of care. The patient will be followed by a physician who will periodically review the plan of care. Time Spent With Patient Time: Total time managing care of this patient today ____ minutes.
[2023-03-03] MEDS: ondansetron HCL 4 MG/2 ML VIAL IVPUSH (12:16)
--- NOTE | 2023-03-03 13:37 | P.PNIM_ITS ---
Subjective Subjective Date of Service: 03/03/23 Interval History: Patient seen and examined, no new events overnight. Sodium level at 128 and heart fate in the 80s. Potassium level is 3.1 Physical Exam 2 Vital Signs: Vital Signs: Last Vital Signs Temp 97.0 F 03/03/23 11:13 Pulse 79 03/03/23 11:13 Resp 17 03/03/23 11:13 BP 152/91 H 03/03/23 11:13 Pulse Ox 92 03/03/23 11:13 O2 Del Method Room Air 03/03/23 11:13 BMI result Body Mass Index 25.7 Const: Other: General: Alert, no acute distress Resp: lungs are clear, now wheeze at all CVS: S1,S2, iregular iregular, trace leg edema GI: +BS, NT, no distention Skin: No rash Neuro: motor grossly intact Psych: appropriate affect Objective Data Active Medications Acetaminophen (Acetaminophen 325 Mg Tablet) 650 mg PO Q6H PRN PRN Reason: Pain, Mild (Pain Scale 1-3) Last Admin: 03/02/23 13:31 Dose: 650 mg Documented By: FAYE Apixaban (Apixaban 5 Mg Tablet) 5 mg PO BID [facility] Last Admin: 03/03/23 08:48 Dose: 5 mg Documented By: ZEUS Benzonatate (Benzonatate 100 Mg Capsule) 200 mg PO TID PRN PRN Reason: Cough Last Admin: 03/02/23 07:58 Dose: 200 mg Documented By: FAYE Diltiazem HCl (Diltiazem Hcl Cd 240 Mg Cap.Er.Deg) 240 mg PO BEDTIME [facility]; Protocol Last Admin: 03/02/23 19:56 Dose: 240 mg Documented By: SAHIL Guaifenesin (Guaifenesin La 600 Mg Tab.Er.12h) 600 mg PO BID PRN PRN Reason: Cough Last Admin: 02/27/23 22:53 Dose: 600 mg Promethazine HCl 12.5 mg/ (Sodium Chloride) 50.5 mls @ 202 mls/hr IV Q6H PRN PRN Reason: Nausea and Vomiting Last Infusion: 03/02/23 09:21 Dose: Infused Documented By: FAYE Latanoprost (Latanoprost 0.005 % Ophth Mel 2.5 Ml Drops) 1 drop EYE-RIGHT BEDTIME [facility] Last Admin: 03/02/23 20:05 Dose: 1 drop Documented By: SAHIL Levalbuterol HCl (Levalbuterol Hcl 1.25 Mg/3 Ml Vial.Neb) 1.25 mg INHALE Q4H PRN PRN Reason: Wheezing Lorazepam (Lorazepam 0.5 Mg Tablet) 0.25 mg PO Q6H PRN PRN Reason: anxiety/restlessness Last Admin: 03/03/23 00:00 Dose: 0.25 mg Documented By: SAHIL Melatonin (Melatonin 3 Mg Tablet) 6 mg PO BEDTIME PRN PRN Reason: Insomnia Last Admin: 02/26/23 21:08 Dose: 6 mg Documented By: SUSANA Metoprolol Succinate (Metoprolol Succinate Er 100 Mg Tab.Er.24h) 100 mg PO DAILY [facility]; Protocol Last Admin: 03/03/23 08:49 Dose: 100 mg Documented By: ZEUS Omeprazole (Omeprazole 20 Mg Capsule.Dr) 20 mg PO DAILY@0630 [facility] Last Admin: 03/03/23 05:45 Dose: Not Given Documented By: SAHIL Non-Admin Reason: Patient Refused Ondansetron HCl (Ondansetron Hcl 4 Mg/2 Ml Vial) 4 mg IVPUSH Q8H PRN PRN Reason: Nausea and Vomiting Last Admin: 03/03/23 12:16 Dose: 4 mg Documented By: ZUES Sodium Chloride (0.9 % Sodium Chloride Flush 3 Ml Syringe) 3 ml IVFLUSH QSHIFT [facility] Last Admin: 03/03/23 08:49 Dose: 3 ml Documented By: ZEUS Timolol Maleate (Timolol Maleate 0.5 % Oph Mel 5 Ml Drbtl) 1 drop EYE-BOTH DAILY [facility] Last Admin: 03/03/23 08:50 Dose: 1 drop Documented By: ZEUS Labs 02/27/23 05:22 03/03/23 06:02 Labs: Laboratory Results - last 24 hr 03/02/23 03/02/23 03/03/23 12:55 13:23 06:02 Hold Purple Top SEE NOTE Anion Gap 17 Estim Creat Clear Calc 49.6 Estimated GFR > 60 Random Glucose 135 H Calcium 9.4 COVID-19 (SANDY) Negative COVID-19 Clin Com See Note S. pyogenes GrpA NORIS Negative Assessment and Plan (1) Wheezing: Status: Acute (2) Atrial fibrillation with RVR: Status: Acute (3) Hyponatremia: Status: Acute Plan The patient was referred to the emergency department (ED) for an assessment of a low sodium level, which was identified during an outpatient evaluation at the primary care physician's (PCP) office. Specifically, the sodium level was noted to be 124. The patient presented with symptoms of nausea and confusion. Additionally, she was diagnosed with atrial fibrillation characterized by a rapid ventricular response, with a heart rate reaching up to 140, and was initiated on IV cardizem. 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 The patient's management included fluid restriction, intermittent IV Lasix administration, and ultimately, the administration of urea powder. Although the patient's sodium level has been slow to rise, it is currently stable at 128, and improvement is anticipated. Ongoing outpatient monitoring is recommended, with follow-up appointments scheduled with Dr. Ann. The patient is advised to limit her daily water intake to no more than 2000 cc. The confusion, indicative of metabolic encephalopathy, is attributed to hyponatremia and has since resolved. Hypokalemia resulting from Lasix has been addressed with supplementation and is expected to fully resolve, requiring further outpatient follow-up. -Replace potassium New onset atrial fibrillation with rapid ventricular response (AFib with RVR): Patient has a CHADS-VASc score of 5. Despite being on Metoprolol at home, her heart rate was elevated. She received IV Cardizem and was subsequently transitioned to oral Cardizem. In addition to Metoprolol, her Cardizem dosage has been adjusted to 240 mg daily at night. She will continue Toprol XL 100 mg in the morning and is prescribed Eliquis 5 mg twice daily for stroke prevention. Dr. Ann, the pebble mill operator, guided her management, and outpatient follow-up is arranged. Presently, her heart rate is in the 80s. Continue the regimen of cardizem and metoprolol Wheezing from the upper airway was evaluated by Dr. Al, the almond pan finisher, who recommended Xepenex as needed, as the symptoms appeared to have improved. Essential hypertension: The patient restarted home medication, Toprol XL 100 mg daily (usually 125 mg), and Cardizem was added as mentioned. Further adjustments may be needed on an outpatient basis. Gastroesophageal reflux disease: Patient is on proton pump inhibitor (PPI). Choking episode on a pill, occurring once, seems to be an isolated event. The patient had no problems taking pills or food thereafter. Speech evaluation recommended crushing pills if possible and continuing a regular diet with thin liquids. Nausea, likely related to hyponatremia, may take Zofran as neede DVT prophylaxis--Eliquis We discussed going home today as planed but they prefer waiting until tomorrow and therefore will continue to monitor, adjust potasssium level and monitor sodium Quality Stroke Does the patient have a stroke diagnosis?: No VTE Prior VTE?: No VTE Risk Level:: Medical - moderate - high VTE Device Contraindication: Treatment Not Indicated VTE Drug Contraindication: N/A - Med Ordered
[2023-03-03 16:02] LABS: Magnesium 1.5 mg/dL (1.6-2.6)
[2023-03-03] MEDS: Metoprolol Tartrate 25 MG TABLET PO (17:23)
[2023-03-03] MEDS: Sodium Chloride Tab 1 GM TABLET PO (17:23)
[2023-03-03] MEDS: Magnesium Sulfate/H2O 2 GM/50 ML PIGGYBACK IV (17:35)
--- NOTE | 2023-03-03 19:12 | PC.NURSE ---
Pt and family concerned addressed this shift with this RN as well as Nursing supervisor rework. Dr Rogel assumed care of patient late afternoon. IV magnesium given per order as well as sodium tablet and 25 mg metoprolol per order. Meds explained to patient and family at time given. Resting in bed. Will continue to monitor and report changes
[2023-03-03] MEDS: dilTIAZem HCL CD 240 MG CAP.ER.DEG PO (20:03)
[2023-03-03] MEDS: Latanoprost 0.005 % Ophth Sol 2.5 ML DROPS 1 DROP EYE-RIGHT (20:22)
[2023-03-03 22:48] VITALS: BP 140/87; PULSE 93; RESP 20; TEMP 36.4; O2SAT 89
[2023-03-03] MEDS: LORazepam 0.5 MG TABLET 0.25 MG PO ×2 (23:46)
[2023-03-04] VITALS (7 sets, daily range): BP systolic 127–155; BP diastolic 78–96; PULSE 71–93; RESP 16–20; TEMP 36.4–37.1; O2SAT 88–96
[2023-03-04] MEDS: LORazepam 2 MG/ML VIAL 0.5 MG IVPUSH (04:08)
--- NOTE | 2023-03-04 04:25 | PC.NURSE ---
pt's [id number]% on RA notified ordered supplemental oxygen.02 2 L n/c applied [id number]% on 2L.Daughter also requesting something for sleep for pt. Ativan 0.25mg po given at 2345 with no effect. ordered ativan 0.5mg iv given at 0400.
[2023-03-04 08:47] LABS: Anion Gap 15 (12-20); Blood Urea Nitrogen 28 mg/dL (9-16); Calcium 9.3 mg/dL (8.4-10.2); Carbon Dioxide 29 mmol/L (22-29); Chloride 89 mmol/L (96-108); Creatinine Clr Calc Pharmacy 52.3; Estimated Glomerular Filt Rate > 60; Glucose Random 132 mg/dL (60-115); Magnesium 2.1 mg/dL (1.6-2.6); Potassium 3.4 mmol/L (3.3-5.1); Sodium 130 mmol/L (135-145)
[2023-03-04 09:53] LABS: B Type Natriuretic Peptide 515 pg/mL (<100)
[2023-03-04] MEDS: timoloL maleate 0.5 % Oph Sol 5 ML DRBTL 1 DROP EYE-BOTH (10:38)
[2023-03-04] MEDS: Metoprolol Succinate ER 100 MG TAB.ER.24H PO (10:39)
[2023-03-04] MEDS: Metoprolol Succinate ER 25 MG TAB.ER.24H PO (10:39)
[2023-03-04] MEDS: Apixaban 5 MG TABLET PO ×2 (10:39→20:16)
[2023-03-04] MEDS: Furosemide 20 MG TABLET PO (10:39)
[2023-03-04] MEDS: Potassium Chloride ER 20 MEQ TAB.ER.PRT 40 MEQ PO (11:24)
--- NOTE | 2023-03-04 15:03 | P.PNIM_ITS ---
Subjective Subjective Date of Service: 03/04/23 Interval History: Events from last night noted patient was noted to be coughing and had poor sleep therefore required Ativan, this morning noted to be tired and sleepy but now awake alert offers no acute complaints denies nausea, no abdominal pain complain of intermittent nausea mostly at night, no vomiting, no fevers no chills no shortness of breath no chest pain or palpitations. All other system reviewed and negative. Physical Exam 2 Vital Signs: Vital Signs: Last Vital Signs Temp 97.6 F 03/04/23 11:49 Pulse 77 03/04/23 11:49 Resp 18 03/04/23 11:49 BP 127/79 03/04/23 11:49 Pulse Ox 92 03/04/23 11:49 O2 Del Method Room Air 03/04/23 11:49 O2 Flow Rate 2 03/04/23 08:00 BMI result Body Mass Index 25.7 Const: Other: General resting comfortably in no acute distress. Neck no JVD. CVS irregular rate rhythm, Respiratory lungs clear to auscultation, no respiratory distress, no wheeze, no rhonchi. Gastrointestinal abdomen soft, nontender, bowel sounds audible, no guarding , no rigidity. Extremities no edema. Neuro nonfocal , moving all 4 extremity speech clear. Skin no rash Psych appropriate affect Objective Data Active Medications Acetaminophen (Acetaminophen 325 Mg Tablet) 650 mg PO Q6H PRN PRN Reason: Pain, Mild (Pain Scale 1-3) Last Admin: 03/02/23 13:31 Dose: 650 mg Documented By: FAYE Apixaban (Apixaban 5 Mg Tablet) 5 mg PO BID [facility] Last Admin: 03/04/23 10:39 Dose: 5 mg Documented By: ZEUS Benzonatate (Benzonatate 100 Mg Capsule) 200 mg PO TID PRN PRN Reason: Cough Last Admin: 03/02/23 07:58 Dose: 200 mg Documented By: FAYE Diltiazem HCl (Diltiazem Hcl Cd 240 Mg Cap.Er.Deg) 240 mg PO BEDTIME [facility]; Protocol Last Admin: 03/03/23 20:03 Dose: 240 mg Documented By: JUDITH Guaifenesin (Guaifenesin La 600 Mg Tab.Er.12h) 600 mg PO BID PRN PRN Reason: Cough Last Admin: 02/27/23 22:53 Dose: 600 mg Promethazine HCl 12.5 mg/ (Sodium Chloride) 50.5 mls @ 202 mls/hr IV Q6H PRN PRN Reason: Nausea and Vomiting Last Infusion: 03/02/23 09:21 Dose: Infused Documented By: FAYE Latanoprost (Latanoprost 0.005 % Ophth Mel 2.5 Ml Drops) 1 drop EYE-RIGHT BEDTIME [facility] Last Admin: 03/03/23 20:22 Dose: 1 drop Documented By: JUIDTH Levalbuterol HCl (Levalbuterol Hcl 1.25 Mg/3 Ml Vial.Neb) 1.25 mg INHALE Q4H PRN PRN Reason: Wheezing Melatonin (Melatonin 3 Mg Tablet) 6 mg PO BEDTIME PRN PRN Reason: Insomnia Last Admin: 02/26/23 21:08 Dose: 6 mg Documented By: SUSANA Metoprolol Succinate (Metoprolol Succinate Er 100 Mg Tab.Er.24h) 100 mg PO DAILY [facility]; Protocol Last Admin: 03/04/23 10:39 Dose: 100 mg Documented By: ZEUS Metoprolol Succinate (Metoprolol Succinate Er 25 Mg Tab.Er.24h) 25 mg PO DAILY [facility]; Protocol Last Admin: 03/04/23 10:39 Dose: 25 mg Documented By: ZEUS Mirtazapine (Mirtazapine 7.5 Mg Tablet) 7.5 mg PO BEDTIME [facility] Omeprazole (Omeprazole 20 Mg Capsule.Dr) 20 mg PO DAILY@0630 [facility] Last Admin: 03/04/23 05:38 Dose: Not Given Documented By: JUDITH Non-Admin Reason: Patient Refused Ondansetron HCl (Ondansetron Hcl 4 Mg/2 Ml Vial) 4 mg IVPUSH Q8H PRN PRN Reason: Nausea and Vomiting Last Admin: 03/03/23 12:16 Dose: 4 mg Documented By: ZEUS Sodium Chloride (0.9 % Sodium Chloride Flush 3 Ml Syringe) 3 ml IVFLUSH QSHIFT [facility] Last Admin: 03/04/23 10:28 Dose: Not Given Documented By: ZEUS Non-Admin Reason: Previously Administered Timolol Maleate (Timolol Maleate 0.5 % Oph Mel 5 Ml Drbtl) 1 drop EYE-BOTH DAILY [facility] Last Admin: 03/04/23 10:38 Dose: 1 drop Documented By: ZEUS Labs 02/27/23 05:22 03/04/23 08:00 Labs: Laboratory Results - last 24 hr 03/03/23 03/04/23 06:02 08:00 Hold Purple Top SEE NOTE Anion Gap 15 Estim Creat Clear Calc 52.3 Estimated GFR > 60 Random Glucose 132 H Calcium 9.3 Magnesium 1.5 L 2.1 B-Natriuretic Peptide 515 H Assessment and Plan (1) Atrial fibrillation with RVR: Status: Acute (2) Hyponatremia: Status: Acute (3) Osteoarthritis: Status: Acute (4) Essential hypertension: Status: Acute Plan Admitted to medical floor with a diagnosis of hyponatremia. Hyponatremia: Sodium on admission was noted to be 124 Likely multifactorial hyponatremia due to chronic nausea causing SIADH, low solute diet due to poor by mouth intake, mild component of volume overload with bilateral effusion and elevated BNP but no overt CHF Seen by Nephrology treated with IV Lasix x2 days, urea powder 30 g daily x2 days and 1 g of salt tablet Sodium improved to 130 Spoke with patient's daughter and and recommend salt hands for nausea and hilaria john Recommend Lasix 20 mg Sunday and Sunday with potassium supplement to avoid hypo kalemia Recommend outpatient lab monitoring next week and follow-up with PCP and Nephrology New onset atrial fibrillation with rapid ventricular response (AFib with RVR): CHADS-VASc score of 5. treated with IV Cardizem and was subsequently transitioned to oral Cardizem. cont.home dose of Metoprolol, Continue Eliquis 5 mg twice daily for stroke prevention. Recommend outpatient follow-up with Cardiology Acute hypoxic respiratory failure Noted to have hypoxia overnight question etiology chest x-ray obtained that showed no acute abnormality Wean oxygen patient not on home O2, follow clinical course Wheezing from the upper airway was evaluated by Dr. Al, the pen and pencil repairer, who recommended Xepenex as needed, and the symptoms appeared to have resolved. Essential hypertension: Continue Toprol XL 125 mg in the morning and cardizem 240 mg at bedtime, her blood is controlled and within normal range. Gastroesophageal reflux disease: on proton pump inhibitor (PPI). Nausea, has been ongoing for nearly 2 years take antiemetics as needed Insomnia--on Melatonin, will add Remron 7.5 mg at bedtime, this has potential for hyponatremia, albeit very low Disposition: home with visiting nurse services In my clinical judgment patient need continued inpatient hospitalization for monitoring of hyponatremia Quality Stroke Does the patient have a stroke diagnosis?: No VTE Prior VTE?: No VTE Risk Level:: Medical - moderate - high VTE Device Contraindication: Treatment Not Indicated VTE Drug Contraindication: N/A - Med Ordered
[2023-03-04] MEDS: dilTIAZem HCL CD 240 MG CAP.ER.DEG PO (20:16)
[2023-03-04] MEDS: 0.9 % Sodium Chloride Flush 3 ML SYRINGE IVFLUSH (20:16)
[2023-03-04] MEDS: Mirtazapine 7.5 MG TABLET PO (20:16)
[2023-03-04] MEDS: Latanoprost 0.005 % Ophth Sol 2.5 ML DROPS 1 DROP EYE-RIGHT (20:29)
--- NOTE | 2023-03-04 23:16 | PM.EVENT ---
Event Note Date of Service: 03/04/23 Event Note: Nurse reported coughing episodes with pill intake. Daughter concerned for aspiration. Vitals stable. RT to suction. Will keep patient NPO and consult speech. Obtaining chest x-ray Time Spent With Patient Time: Total time managing care of this patient today ____ minutes.
[2023-03-05] VITALS: BP 160/93; PULSE 84; RESP 18; TEMP 37.1; O2SAT 93
--- NOTE | 2023-03-05 01:01 | PC.NURSE ---
03/04/2023: 1900 -Handover received from previous RN and acquired care of pt. Pt. resting in bed with her daughter, Damaris in recliner at bedside. 1999: Nursing assessment performed. Patient awake and alert. Oriented to place, person, but not to time/date/year. Patient pleasant with clear speech. She denies SOB. No cough noted. Patient with HOB elevated almost 90 degrees for aspiration risk. Meds given crushed in applesauce, except for Cardizem CD capsule. Patient tolerated meds crushed in applesauce without difficulty; able to swallow Cardizem CD capsule after 4 bites of applesauce. Patient's speech clear after all meds consumed but noted to cough a few times; non-productive. HOB kept elevated. Intermittent nonproductive cough noted therafter. 2234: Call martin ringing. Patient's daughter states she is concerned about her mother's coughing and she can hear rattling of phlegm or something in her throat. Damaris asking for doctor to come to bedside now. Patient's O2 sat 89% on RA. 2L NC applied with O2 sat's of 96-97%.Rhonchi auscultated mild in RUL but primarily in throat. Pt. not able to clear cough/throat. BP 131/83; RR 20; pt. able to talk clear in between coughing. Tigertexted Dr. Tolbert at 2242 the events of this evening, pt. current condition and daughter's request for him at bedside now. Respiratory Therapist Uli notified via phone and in to see pt. at 2255. Dr. Tolebrt in to see pt. at approximately 2315. CXR ordered and completed. Pt. now ordered NPO-mouth swabs provided. and ST Speech evaluation ordered as well. Pt and pt. daughter damaris aware of NPO. Pt. states not in distress; HOB elevated. O2 sat 93% on RA at midnight. 2L O2 reapplied. Pt. was able to ambulate to bathroom with daughter. Per daughter Damaris, mother was not winded when walking to the bathroom with her. Will cont. per plan of care. Afib in the 80's on log snaker.
[2023-03-05] MEDS: 0.9 % Sodium Chloride Flush 3 ML SYRINGE IVFLUSH (01:43)
[2023-03-05 04:00] VITALS: BP 120/85; PULSE 77; RESP 18; TEMP 36.6; O2SAT 90
[2023-03-05 07:30] VITALS: BP 141/86; PULSE 79; RESP 22; TEMP 36.1; O2SAT 91
[2023-03-05 07:38] LABS: B Type Natriuretic Peptide 454 pg/mL (<100)
[2023-03-05 07:41] LABS: Anion Gap 12 (12-20); Blood Urea Nitrogen 25 mg/dL (9-16); Calcium 9.5 mg/dL (8.4-10.2); Carbon Dioxide 34 mmol/L (22-29); Chloride 91 mmol/L (96-108); Creatinine Clr Calc Pharmacy 44.4; Estimated Glomerular Filt Rate > 60; Glucose Random 118 mg/dL (60-115); Potassium 4.1 mmol/L (3.3-5.1); Sodium 133 mmol/L (135-145)
--- NOTE | 2023-03-05 09:06 | P.PNNP_ITS ---
Subjective Subjective Date of Service: 03/05/23 Principal diagnosis: Atrial fibrillation Interval history: events noted. Daughter at bedside. Last night she had an episode of choking. This improved after suctioning. Today she has no new complaints. Physical Exam 2 Vital Signs: Vital Signs: Last Vital Signs Temp 96.9 F 03/05/23 07:30 Pulse 79 03/05/23 07:30 Resp 22 H 03/05/23 07:30 BP 141/86 H 03/05/23 07:30 Pulse Ox 91 L 03/05/23 07:30 O2 Del Method Room Air 03/05/23 07:30 O2 Flow Rate 2 03/05/23 00:00 BMI result Body Mass Index 25.7 Const: General: comfortable Nutritional Appearance: well nourished O rientation/consciousness: patient oriented x3 HEENT: Head: No normal to inspection Mouth: moist mucous membranes Neck: Neck: Yes supple and Yes no JVD Resp: Auscultation: clear to auscultation bilaterally, no rales and rub present Cardio: Jugular venous distension: no JVD Palpation: no palpable S3 and no palpable S4 Heart sounds: no rubs GI: Palpation (GI): Soft to palpation and nontender Percussion: No Fluid wave present : General: Yes no CVA tenderness Back/Spine/Pelvis: Back: no CVA tenderness Skin: General skin exam: no rashes or lesions noted Neuro: General: patient oriented x3 Extrem: General: Yes no pedal edema and No clubbing Objective Data Labs 02/27/23 05:22 03/05/23 06:43 Labs: Laboratory Results - last 24 hr 03/04/23 03/05/23 08:00 06:43 Sodium 133 L Potassium 4.1 D Chloride 91 L Carbon Dioxide 34 H Anion Gap 12 BUN 25 H Creatinine 0.86 Estim Creat Clear Calc 44.4 Estimated GFR > 60 Random Glucose 118 H Calcium 9.5 B-Natriuretic Peptide 515 H 454 H Procedures Date of Service Date of Service: 03/05/23 Assessment & Plan Assessment and plan (1) Hyponatremia: Status: Acute Plan Hyponatremia due to non osmotic ADH release. Serum sodium is gradually improving. No fluid indication for urea powder. Restrict hypotonic fluid/free water. Goal is admitted serum sodium of 130 millimoles. Renal function stable at baseline. Will follow along as needed. Thank you Time Spent With Patient Time: Total time managing care of this patient today ____ minutes. Progress Note: Quality Stroke Does the patient have a stroke diagnosis?: No
--- NOTE | 2023-03-05 11:56 | MHC.SL.SWA ---
Speech Pathologist Impression: Risk of aspiration, oropharyngeal dysphagia Risk of Aspiration Due to: None Dysphasia Diet Status: Start on NDD3 Liquid Consistency and Strategies for Safe Swallow: Liquid Intake Recommendation: Thin Liquid Intake Strategies: Small Sips No Straws Solid Food Consistency: Dietary Recommendations: Chopped/Advanced (NDD3) Additional Modifications to Solid Foods: Pt seen for repeat-evaluation per MD's order after pt had another choking episode with pills. Pt again tolerated trials of solids and liquids when observed by BUSINESS INFORMATION MANAGER at bedside. No coughing or choking. Cleared oral cavity. As a precaution, BUSINESS INFORMATION MANAGER recommending a chopped diet/advanced (NDD3) diet with thin liquids. Pt has a history of choking on pills and/or reporting pills feeling stuck. Recommend pills to be CRUSHED in PUREE or LIQUID form when possible. Time of day seems to be a factor as well in pt's difficulties, as these episodes have occurred at night. Pt to have TOTAL 1:1 SUPERVISION during PO intake, ensure aspiration precautions: take small bites, chew food well, clear oral cavity before taking more bites, follow each bite with dry swallow then sip of liquid (alternate solid/liquid), upright position during PO intake and for at least 60 minutes afterwards. BUSINESS INFORMATION MANAGER will continue to follow during inpatient stay. Oral Medication Intake: Crushed with Puree; Liquid form when possible Please contact the pharmacy regarding appropriate crushable or liquid drug formulations that are available whenever modified delivery is recommended. Compensatory Strategies and Precautions to be Taken for Safe Swallow: Sitting Upright (90 deg) Double Swallow No Straw Liquids from Cup Liquids from Spoon Small Bites and Sips Alternate Liquids/Solids Rate of Ingestion Change Avoid Specific Foods Supervision While Eating and Drinking for Safe Swallow: Total Supervision (1:1) Foods to Avoid: Hard, tough to chew solids Swallowing Recommended Treatments: Compens. Strategy Educat. Recommendation for Speech: Inpatient Speech Therapy Commercial Pilot Clinican/Clinical Fellow: No Supervisory Statement: I have reviewed and agree with the student/clinical fellow's documentation: N/A Speech Language Pathologist: Alessandra Tejeda M.A., [facility]-BUSINESS INFORMATION MANAGER
[2023-03-05] MEDS: timoloL maleate 0.5 % Oph Sol 5 ML DRBTL 1 DROP EYE-BOTH (12:36)
[2023-03-05] MEDS: Apixaban 5 MG TABLET PO (12:36)
[2023-03-05] MEDS: Metoprolol Succinate ER 25 MG TAB.ER.24H PO (12:36)
[2023-03-05] MEDS: Metoprolol Succinate ER 100 MG TAB.ER.24H PO (12:36)
--- NOTE | 2023-03-05 12:52 | P.DS_ITS ---
DS: Providers Provider Date of Service: 03/05/23 Date of admission: 02/26/23 20:38 Primary care physician: Mannie Birch DO Consults: 02/26/23 20:49 Consult to Cardiology Routine Consulting Provider: [facility] [place] [facility] Reason for consultation: AFib with RVR Consult to Nephrology Routine Consulting Provider: Chilango Manzanares Reason for consultation: hyponatremia 03/01/23 09:19 Consult to Pulmonology Routine Consulting Provider: [facility] [place] [facility] Reason for consultation: Stridor Has provider been notified: No DS: Diagnosis Discharge Diagnosis (1) Hyponatremia: Status: Acute DS: Summary Hospital Course Hospital Course: Chief Complaint: Abnormal labs This is a 83-year-old female with pertinent history of essential hypertension, gastroesophageal reflux disease who was brought to the emergency department for evaluation of abnormal labs. Patient got blood work at her PCPs office. Sodium was found to be low and she was sent to the ER. Patient states she got blood work about a week ago at her manager environmental's office where sodium was low and hence they repeated blood work at PCPs office. No history of hyponatremia in the past. Does complain of nausea, fatigability over the last 7-10 days. No vomiting or diarrhea. No fever, chills, chest discomfort, palpitations, shortness of breath, abdominal pain, changes in urinary or bowel habits. In the emergency department, sodium was found to be 125 and patient was found to be in AFib with RVR. Hospital course: The patient was referred to the emergency department (ED) for an assessment of a low sodium level, which was identified during an outpatient evaluation at the primary care physician's (PCP) office. Specifically, the sodium level was noted to be 124. The patient presented with symptoms of nausea and confusion. Additionally, she was diagnosed with atrial fibrillation characterized by a rapid ventricular response, with a heart rate reaching up to 140, and was initiated on IV cardizem. 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 The patient's management included fluid restriction, IV Lasix daily x 2 days, urea powder 30 gm daily x 2 days and 1 gm of salt tablet . Although the patient's sodium level has been slow to rise, it is currently stable at 133 and improvement is anticipated. Ongoing outpatient monitoring is recommended through her primary care provider. It would beneficial for her to continue to follow up with a manager environmental and for her lab to be monitored on outpatient basis. The patient is advised to limit her daily water intake to no more than 1000 cc. The confusion, indicative of metabolic encephalopathy, is attributed to hyponatremia and possibly underlying dementia and has since resolved. Hypokalemia resulting from Lasix has been addressed with supplementation and has resolved. She will be maintained on Lasix 20 mg Sun,Sun , along potassium 20 meq on the same days. Also she was noted to have magnesium level of 1.5 and was given supplement with repeat level within normal range. As for New onset atrial fibrillation with rapid ventricular response (AFib with RVR): Patient has a CHADS-VASc score of 5. Despite being on Metoprolol at home, her heart rate was elevated. She initially was treated with IV Cardizem and was subsequently transitioned to oral Cardizem. In addition to her home dose of Metoprolol, Cardizem dosage has been adjusted to 120 mg bid, She will continue Toprol XL 125 mg in the morning and is prescribed Eliquis 5 mg twice daily for stroke prevention. Dr. Ann, the brass instrument repair technician, guided her management, he recommends outpatient cardiology with him or another brass instrument repair technician of the patient's choosing. Presently, her heart rate is in the 70s to 80s. Wheezing from the upper airway was evaluated by Dr. Al, the community recreation coordinator, who recommended albuterol inhaler as needed upon discharge, and outpatient follow-up with him for pulmonary function test but patient did not have recurrent symptoms of wheezing. Essential hypertension: Her blood pressures have been intermittently high, particularly the diastolic blood but currently with her back on her home dose of Toprol XL 125 mg in the morning and new prescription of cardizem 120mg bid, her blood pressure is controlled and within normal range. Gastroesophageal reflux disease: Patient is on proton pump inhibitor (PPI). Choking episode on a pill, occurred twice and was evaluated by speech therapist on both occasions, she did well with solids and liquids no coughing or choking was noted as a precaution speech therapist recommended chopped diet with thin liquids and pills crushed in pureed or liquid form and possible, otherwise as per daughter patient has no issues at home swallowing food and declined GI evaluation. Nausea, has been ongoing for nearly 2 years , and being followed closely by primary care physician continue antiemetics as needed. Insomnia--we recommend Melatonin, in additional to Remron 7.5 mg at bedtime, this has potential for hyponatremia, albeit very low Family (daughter and ) have been updated on the plan of care. Disposition: will go home with visiting nurse services/PT. Time Attestation Discharge coordination time: Greater than 30 minutes Quality: Safe Use of Opioids Does Pt have an Active Cancer Diagnosis on the Problem List?: No Quality: Stroke Does the patient have a stroke diagnosis?: No Physical Exam Vital Signs: Vital Signs: Last Vital Signs Temp 96.9 F 03/05/23 07:30 Pulse 79 03/05/23 07:30 Resp 22 H 03/05/23 07:30 BP 141/86 H 03/05/23 07:30 Pulse Ox 91 L 03/05/23 07:30 O2 Del Method Room Air 03/05/23 07:30 O2 Flow Rate 2 03/05/23 00:00 BMI result Body Mass Index 25.7 Const: Other: General resting comfortably in no acute distress. Neck no JVD. CVS irregular rate rhythm, Respiratory lungs clear to auscultation, no respiratory distress, no wheeze, no rhonchi. Gastrointestinal abdomen soft, non tender, bowel sounds audible, no guarding , no rigidity. Extremities no edema. Neuro non focal , moving all 4 extremity speech clear. Skin no rash Psych appropriate affect DS: Data Data Completed and Pending Labs on day of discharge: Laboratory Results - last 24 hr 03/05/23 06:43 Sodium 133 L Potassium 4.1 D Chloride 91 L Carbon Dioxide 34 H Anion Gap 12 BUN 25 H Creatinine 0.86 Estim Creat Clear Calc 44.4 Estimated GFR > 60 Random Glucose 118 H Calcium 9.5 B-Natriuretic Peptide 454 H Discharge Plan Discharge Anticipated Discharge Date/Time: 03/03/23 10:30 Patient Disposition: Home Health Service Discharge Diagnosis: Atrial fibrilation with rapid ventricular response, hyponatremia, hypokalemia, nausea, confusion Referrals: [facility] [Outside] - 1 Week Mannie Birch DO [Primary Care Provider] - 1 Week Discharge Medications: New Eliquis 5 mg Tablet 5 mg PO BID Qty: 30 0RF ondansetron 4 mg tablet,disintegrating 4 mg PO BEDTIME PRN (Reason: nausea and vomiting) Qty: 30 0RF mirtazapine 7.5 mg Tablet 7.5 mg PO BEDTIME Qty: 30 0RF diltiazem HCl 60 mg Tablet 120 mg PO BID Qty: 120 0RF furosemide [Lasix] 20 mg tablet 20 mg PO .sun,sun,sunday Qty: 30 0RF Rx Instructions: take lasix 20mg po on sunday,sunday and sunday with potassium 20 meq potassium chloride 20 mEq tablet,ER particles/crystals 20 meq PO .sun,sun,and sunday Qty: 30 0RF Rx Instructions: Take potassium on Sunday and Sunday 20 mEq tablet can break it in to half Continued metoprolol succinate 100 mg tablet extended release 24 hr 100 mg PO DAILY metoprolol succinate 25 mg tablet extended release 24 hr 25 mg PO DAILY timolol maleate 0.5 % drops 1 drp ophthalmic (eye) QAM esomeprazole magnesium 20 mg Tablet,Delayed Release (Dr/Ec) 20 mg PO DAILY latanoprost 0.005 % drops 1 drp ophthalmic-Right BEDTIME Discontinued ondansetron HCl 4 mg tablet 4 mg PO Q8H PRN (Reason: Nausea) Discharge Orders: Discharge Order (Routine); Ordered 03/05/23 Ordered By: Joseluis Rogel Diet: Advance to usual diet Activity on Discharge: As tolerated Stand Alone Forms: Patient Portal Discharge page Other Ambulatory Orders: Basic Metabolic Panel (Routine) Timeframe: 1 Week Facility: [facility] - Location: Laboratory Ordered By: Joseluis Rogel Magnesium (Routine) Timeframe: 1 Week Facility: [facility] - Location: Laboratory Ordered By: Joseluis Rogel Care Plan Goals: Control of atrial fibrilation control of blood pressure resolution of low sodium resolution of low potassium confusion to go away return to normal physical funtioning, Episode of choking on pills, take pills crushed in puree Health Concerns: Atrial fibrilation hyponatremia (low sodium) hypokelemia (low potassium) nauesea confusion Plan of Treatment: Take Cardizem and Metoprolol as recommended to treat atrial fibrilation (heart rate) take Eliquis to thin you blood and prevent stroke avoid drinking too much water, no theresa than 1.5 liters a day to keep sodium up you will have lab work done next week to recheck sodium,magnesium level take Zofran as needed for nausea or vomitting Take Remeron at bedtime for sleep Follow-up with primary care doctor Dr. Birch call for appointment arrange for brass instrument repair technician for close outpatient monitoring You were seen by community recreation coordinator Dr. Al for wheezing you can follow-up with him as outpatient for pulmonary function test, call for appointment Dr. Ann (heart doctor) saw you in-house You will need to follow upwith Dr. Brittani Lozano (Kidney and Sodium doctor) to check up on sodium and potassium level Assessment: see above
--- NOTE | 2023-03-05 13:37 | W.MHC.F2F ---
Service Date Service Date: 03/05/23 Encounter Date of encounter: 03/05/23 Reasons for Services Signs and symptoms assessed: Intermittent nausea, Reason for senior care: neurological assessment and medication management Reason for physical therapy: home safety and mobility and gait/transfer training Homebound: Leaving the home is medically contraindicated at this time without the asist of a device and/or another person due th the listed conditions above and below. Reason homebound: cognitively impaired / unsafe and weakness related to hospital stay Certification: Based on the above findings, I certify that this patient is confined to the home and needs intermittent senior care care, physical therapy and/or speech therapy, or continues to need occupational therapy. The patient is under my care, and I have initiated the establishment of the plan of care. The patient will be followed by a physician who will periodically review the plan of care. Time Spent With Patient Time: Total time managing care of this patient today ____ minutes.
--- NOTE | 2023-03-05 14:02 | PC.NURSE ---
Pt seen by speech therapy this am. Discharged to home this afternoon. IV removed from left arm cath intact. Pt and family provided with all education prior to discharge questions asked and answered by patient and family. Physical prescriptions provided at time of discharge. Off unit in wheelchair with staff and family.
--- NOTE | 2023-03-05 14:28 | MHC.CM.PN ---
Addendum entered by Anne Barrios 03/05/23 15:06: Second IMM given 03/05. Original Note: Pt is medically cleared for D/C today with new [facility]. Pts daughter will transport her home.
== END 2023-03-05 13:45 | disposition home health service (06) | DRG 643 ==
LOC: HO.ED 20:40 → HO.EDOVER 21:24 → HO.IMC 02-27 15:22
PROVIDERS: Internal Medicine; Internal Medicine Nephrology; Physician Assistant; Admitting Provider Student in an Organized Health Care Education/Training Program; Emergency Provider Internal Medicine; PCP Family Medicine; Visit Provider Hospitalist
DX: E22.2 Syndrome of inappropriate secretion of antidiuretic hormone (principal); J96.01 Acute respiratory failure with hypoxia; F05 Delirium due to known physiological condition; I48.91 Unspecified atrial fibrillation; E87.6 Hypokalemia; K21.9 Gastro-esophageal reflux disease without esophagitis; I10 Essential (primary) hypertension; G47.00 Insomnia, unspecified; Z20.822 Contact with and (suspected) exposure to COVID-19; Z87.891 Personal history of nicotine dependence; Z79.899 Other long term (current) drug therapy
CPT/HCPCS: 36415; 70450; 71045; 80048; 80053; 81001; 82533; 83690; 83735; 83880; 83930; 83935; 84100; 84300; 84443; 84484; 85025; 85610; 85730; 87635; 87651; 92526; 92610; 92950; 93005; 93306; 94640; 97162; 99285; J0360; J1650; J1940; J2060; J2405; J2550; J3475

== ENCOUNTER → 2023-02-26 20:37 | Outpatient (BNV) | payer MEDICARE, BC, SELFPAY | PROVIDERS: Emergency Provider Internal Medicine; PCP Family Medicine; Visit Provider Student in an Organized Health Care Education/Training Program | DX: R06.2 Wheezing (principal); I48.91 Unspecified atrial fibrillation; E87.1 Hypo-osmolality and hyponatremia | CPT/HCPCS: 99222; 99232; 99233; 99239; G0180 ==

== ENCOUNTER 2023-02-26 20:38 | Outpatient (BNV) | payer MEDICARE, BC, SELFPAY | END 2023-02-27 07:00 | PROVIDERS: Admitting Provider Student in an Organized Health Care Education/Training Program; Emergency Provider Internal Medicine; PCP Family Medicine; Visit Provider Internal Medicine Cardiovascular Disease | DX: I48.91 Unspecified atrial fibrillation (principal); I34.0 Nonrheumatic mitral (valve) insufficiency | CPT/HCPCS: 93306 ==

== ENCOUNTER → 2023-02-26 20:38 | Outpatient (BNV) | payer MEDICARE, BC, SELFPAY | PROVIDERS: Admitting Provider Student in an Organized Health Care Education/Training Program; Emergency Provider Internal Medicine; PCP Family Medicine; Visit Provider Internal Medicine Cardiovascular Disease | DX: I48.91 Unspecified atrial fibrillation (principal) | CPT/HCPCS: 99222; 99233 ==

== ENCOUNTER → 2023-02-26 20:38 | Outpatient (BNV) | payer MEDICARE, BC, SELFPAY | PROVIDERS: Admitting Provider Student in an Organized Health Care Education/Training Program; Emergency Provider Internal Medicine; PCP Family Medicine; Visit Provider Internal Medicine Nephrology | DX: E87.1 Hypo-osmolality and hyponatremia (principal) | CPT/HCPCS: 99222; 99231; 99232 ==

== ENCOUNTER → 2023-02-26 20:38 | Outpatient (BNV) | payer MEDICARE, BC, SELFPAY | PROVIDERS: Admitting Provider Student in an Organized Health Care Education/Training Program; Emergency Provider Internal Medicine; PCP Family Medicine; Visit Provider Internal Medicine | DX: E87.1 Hypo-osmolality and hyponatremia (principal); I48.91 Unspecified atrial fibrillation; K21.9 Gastro-esophageal reflux disease without esophagitis; I10 Essential (primary) hypertension; R06.1 Stridor; R06.2 Wheezing | CPT/HCPCS: 99222 ==